=== PATIENT | male | born 1960 | race Caucasian/White ===

== ENCOUNTER → 2020-07-06 | Outpatient (CLI) | payer BC ==
--- NOTE | 2020-07-06 09:17 | US ---
EXAMINATION TYPE: US prostate transrectal DATE OF EXAM: 07/06/2020 COMPARISON: NONE CLINICAL HISTORY: R97.20 ELEVATED PROSTATE ANTIGEN. This examination was performed using the transrectal probe. EXAM MEASUREMENTS: Gland Size: 5.5 x 3.7 x 5.0cm Volume: 52.7 Predicted PSA: 6.3 Actual PSA (if available):4.7 Enlarged, heterogeneous gland without distinct mass. IMPRESSION: No suspicious lesion identified. Predicted PSA = volume x 0.12 ng/ml Calculated Volume = 0.5236 x L x W x H
== END | disposition home or self-care (01) ==
LOC: RADUSWWP 07:29
PROVIDERS: ATTEND Family Medicine
DX: R97.20 Elevated prostate specific antigen [PSA] (principal)
CPT/HCPCS: 76872

== ENCOUNTER 2020-07-13 09:28 | Day surgery (SDC) | payer BC ==
[2020-07-12 08:37] VITALS: BMI 37.8
[~2020-07-13 09:28] MED LIST: LACTATED RINGERS 1,000 ML IV SCH
[2020-07-13] MEDS ORDERED: LIDOCAINE 1% (10MG/ML) FOR IV START INTRADERMA ONE (10:45)
[2020-07-13 10:47] VITALS: RESP 20; TEMP 97.9
[2020-07-13] MEDS ORDERED: PROPOFOL 10 MG/ML 20 ML VIAL IV ONE (11:16)
[2020-07-13] MEDS ORDERED: LIDOCAINE 1% INJ 10MG/ML (20 ML MDV) ONE (11:16)
--- NOTE | 2020-07-13 11:35 | P.PCN ---
Date of Procedure: 07/13/20 Procedure(s) Performed: BRIEF HISTORY: Patient is a 60-year-old pleasant male scheduled for an elective colonoscopy as a part of screening for colon rectal neoplasia. PROCEDURE PERFORMED: Colonoscopy. PREOPERATIVE DIAGNOSIS: Screening for colon cancer. IV sedation per Anesthesia. PROCEDURE: After informed consent was obtained, the patient, was brought into the endoscopy unit. IV sedation was administered by Anesthesia under continuous monitoring. Digital rectal examination was normal. Initially the Olympus CF-160 flexible video colonoscope was then inserted in the rectum, gradually advanced into the cecum without any difficulty. Careful examination was performed as the scope was gradually being withdrawn. Ileocecal valve and the appendiceal orifice were visualized and appeared normal. Prep was fair.. Mucosa of the cecum, ascending colon, transverse colon, descending colon, sigmoid colon, and rectum appeared normal. Retroflexion was performed in the rectum and no lesions were seen. Scattered left sided diverticulosis seen. The patient tolerated the procedure well. IMPRESSION: Normal-appearing colon from rectum to cecum with no evidence of colorectal neoplasia . Scattered left-sided diverticulosis RECOMMENDATIONS: Findings of this examination were discussed with the patient as well as his family. He was advised to have a repeat screen colonoscopy in 10 years.
[2020-07-13 11:40] VITALS: PULSE 68
[2020-07-13 11:55] VITALS: BP 162/92
== END 2020-07-13 12:11 | disposition home or self-care (01) ==
LOC: ORWHC2ENDO 09:28
PROVIDERS: ATTEND Internal Medicine Gastroenterology
DX: Z12.11 Encounter for screening for malignant neoplasm of colon (principal); K57.30 Diverticulosis of large intestine without perforation or abscess without bleeding; G47.33 Obstructive sleep apnea (adult) (pediatric); Z79.899 Other long term (current) drug therapy; Z99.89 Dependence on other enabling machines and devices
CPT/HCPCS: G0121; J2001; J2704; 45378

== ENCOUNTER → 2020-09-27 | Outpatient (CLI) | payer BC ==
--- NOTE | 2020-09-27 19:39 | CONS ---
CONSULTATION DATE OF SERVICE: 09/27/2020 This 60-year-old gentleman has been re-evaluated in Sleep Center for obstructive sleep apnea-hypopnea syndrome. HISTORY OF PRESENT ILLNESS/SLEEP-WAKE EVALUATION: Patient has a history of obstructive sleep apnea for about 7 years. Since that time he has been on treatment with CPAP, and he continues to use CPAP equipment every night for the whole night. His sleep schedule is from 10 p.m. to 5 a.m. on weekdays and from 11 p.m. to 7 a.m. on weekends. No problem with falling asleep. No TV set in bedroom. He usually sleeps on the side position. With the machine he does not snore and does not wake up from sleep. No history of hypnagogic hallucinations, sleep paralysis or cataplexy. The patient may take one nap occasionally after noon. [place] Sleepiness Scale is 8. I checked the patient's CPAP unit. CPAP pressure is 13 cm of water, usage /30 nights for more than 4 hours, average usage 6.2 hours per night. Mask fit 63%, but the patient's hose was broken. The patient is using a Cerrato FX large-sized nasal pillow mask. Apnea-hypopnea index is 4.9, which is normal. PAST MEDICAL HISTORY: Positive for hypertension in the past, prostate carcinoma, restless legs syndrome again in the past. PAST SURGICAL HISTORY: Right and left shoulder surgery. SOCIAL HISTORY: Negative for smoking or using alcohol. 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 MEDICATIONS: None at the present time. REVIEW OF SYSTEMS: No fevers. No double vision. No recent chest pain. No shortness of breath. No abdominal pain. No bleeding episodes. No blood in the urine. No seizure episodes. No snoring with CPAP. No awakenings from sleep. FAMILY HISTORY: Hypertension, arthritis. PHYSICAL EXAMINATION: GENERAL: A pleasant patient in no distress. VITAL SIGNS: BP 125/89, HR 78, RR 18, height 6 feet 2 inches, weight 292.4, temperature 98.4, oxygen saturation at room air 95%. HEENT: PERRLA, EOMI. Evaluation of oropharynx showed tongue protrudes midline. Low position of soft palate. NECK: Supple. No JVD. Thyroid is not palpable. Neck measures 18 inches in circumference. LUNGS: Clear to percussion and to auscultation. Good air exchange. No wheezing or rhonchi. HEART: S1, S2 regular. No murmurs, gallops or rubs. ABDOMEN: Slightly obese. EXTREMITIES: No clubbing or cyanosis. FLAME ANNEALING MACHINE SETTER: Awake, alert, and oriented X3. Cranial nerves 2 to 7 intact. There is no fasciculation or atrophy. noted. No focal deficits observed. IMPRESSION: 1. Obstructive sleep apnea-hypopnea syndrome for about 7 years. The patient demonstrated good compliance with treatment, benefitting from treatment. Normal apnea-hypopnea index reading from CPAP unit. 2. Obesity. BMI 37.4. 3. Prostate carcinoma confirmed by biopsy. Patient is preparing for prostatectomy. 4. History of restless legs syndrome in the past. 5. History of hypertension in the past. 6. Status post right and left shoulder surgery. 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 PLAN: 1. I wrote the patient a prescription for all necessary CPAP supplies, including mask, which is Cerrato FX large nasal pillow mask, tube, filters. 2. Patient should continue to use CPAP equipment every night for the whole night and take it with him to the hospital when he goes there for surgery. 3. Watching and losing weight. 4. Sleep hygiene with regular time in bed for at least 7-1/2 to 8 hours. 5. No driving if feeling sleepiness. Thank you very much for allowing me to participate in the management of your patient. Sincerely, Angel Hyman MD, PhD, FAASM Diplomat of [place] [employer] [place] [employer] Assistant Professor Of Music of [facility] [place] MMODL / IJN: [id number] /
== END | disposition home or self-care (01) ==
CPT/HCPCS: 99211

== ENCOUNTER → 2021-03-01 | Outpatient (CLI) | payer BC | END | disposition home or self-care (01) | LOC: LABWHC1 09:09 | PROVIDERS: ATTEND Urology | DX: C61 Malignant neoplasm of prostate (principal) | CPT/HCPCS: 36415; 84153 ==

== ENCOUNTER → 2021-03-28 | Outpatient (CLI) | payer BC | END | disposition home or self-care (01) | LOC: LABWHC1 10:57 | PROVIDERS: ATTEND Urology | DX: C61 Malignant neoplasm of prostate (principal); R97.21 Rising PSA following treatment for malignant neoplasm of prostate | CPT/HCPCS: 36415; 84153 ==

== ENCOUNTER → 2021-04-04 | Outpatient (CLI) | payer BC ==
--- NOTE | 2021-04-04 22:26 | SFUN ---
SLEEP CENTER FOLLOW UP NOTE DATE OF SERVICE: 04/04/2021 This 61-year-old gentleman has been followed in Sleep Center for treatment of obstructive sleep apnea-hypopnea syndrome. The patient is using his CPAP equipment every night for the whole night. I checked his CPAP unit. Pressure is 13 cm of water. Usage is 26/30 nights for more than 4 hours, average 5.9 hours per night, which is good compliance. Mask fitting 80%. Apnea- hypopnea index is 2.1, which is totally normal. Machine is a Dream Station 1, which has been recalled, and the machine, according to patient, is more than 5 years old. CURRENT MEDICATIONS: Viibryd, PHYSICAL EXAMINATION: GENERAL: Pleasant patient in no distress. VITAL SIGNS: BP 124/92, HR 72, RR 15, height 6 feet 2 inches, weight 295 pounds, body mass index 38.2, temperature 97.5, oxygen saturation at room air 96%. HEENT: PERRLA, EOMI, evaluation of oropharynx showed tongue protrudes midline. Low position of soft palate. NECK: Supple, no JVD. Thyroid is not palpable. LUNGS: Clear to percussion and to auscultation. Good air exchange. No wheezing or rhonchi. HEART: S1, S2 regular. No murmurs, gallops, or rubs. ABDOMEN: Soft and nontender. Bowel sounds are present. No organomegaly appreciated. EXTREMITIES: No clubbing or cyanosis. CORN GRINDER: Awake, alert, and oriented X3. Cranial nerves 2 to 7 intact. There is no fasciculation or atrophy. noted. No focal deficits observed. IMPRESSION: 1. Obstructive sleep apnea-hypopnea syndrome. Patient demonstrated great compliance with treatment, benefitting from treatment. Normal respiration on CPAP. CPAP unit is old. It is a Dream Station 1 from [employer] which has been recalled. 2. Obesity. 3. Prostate carcinoma, on treatment with radiation therapy. 4. History of restless legs syndrome in the past. No complaints at the present time. 5. Hypertension. 6. Status post right and left shoulder surgery. 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 PLAN: 1. Prescription for new CPAP unit to replace his old and recalled CPAP machine. We will do it at automatic regimen 5 to 15. We will continue the same type of mask, which is nasal pillows Cerrato FX, large size. 2. Follow-up visit in 30 to 90 days after patient gets new CPAP unit. 3. Continue to use CPAP equipment every night for the whole night. 4. Losing weight. 5. Sleep hygiene with regular time in bed for 8 hours. 6. No driving if feeling sleepiness. Precautions related to driving. The patient is aware of civil and criminal liability for unsafe driving. 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 Thank you very much for allowing me to participate in the management of your patient. Sincerely, Angel Hyman MD, PhD, FAASM Diplomat of [place] [employer] Sleep Medicine Board of [place] [employer] Steam Crane Operator of [facility] [place] MMODL / IJN: [id number] /
== END ==
LOC: SLEEP 13:49
PROVIDERS: ATTEND Internal Medicine
DX: G47.33 Obstructive sleep apnea (adult) (pediatric) (principal); E66.9 Obesity, unspecified; C61 Malignant neoplasm of prostate; I10 Essential (primary) hypertension; G47.61 Periodic limb movement disorder; Z99.89 Dependence on other enabling machines and devices; Z68.38 Body mass index [BMI] 38.0-38.9, adult; Z98.890 Other specified postprocedural states; Z91.011 Allergy to milk products

== ENCOUNTER → 2021-07-09 | Outpatient (CLI) | payer BC | END | disposition home or self-care (01) | LOC: LABWHC1 15:15 | PROVIDERS: ATTEND Radiology Radiation Oncology | DX: C61 Malignant neoplasm of prostate (principal); C91.10 Chronic lymphocytic leukemia of B-cell type not having achieved remission | CPT/HCPCS: 36415; 84153 ==

== ENCOUNTER → 2021-12-12 | Outpatient (CLI) | payer BC | END | disposition home or self-care (01) | LOC: LABWHC1 10:32 | PROVIDERS: ATTEND Radiology Radiation Oncology | DX: C61 Malignant neoplasm of prostate (principal); C91.10 Chronic lymphocytic leukemia of B-cell type not having achieved remission; Z92.3 Personal history of irradiation | CPT/HCPCS: 36415; 84153 ==

== ENCOUNTER → 2022-04-17 | Outpatient (CLI) | payer BC ==
[2022-04-17 12:18] LABS: INR 0.9 (<1.2); Partial Thromboplastin Time 21.5 sec (22.0-30.0); Prothrombin Time 10.1 sec (9.0-12.0)
== END | disposition home or self-care (01) ==
LOC: LABWHC1 10:53
PROVIDERS: ATTEND Physical Medicine & Rehabilitation Pain Medicine
DX: Z01.812 Encounter for preprocedural laboratory examination (principal)
CPT/HCPCS: 36415; 85610; 85730

== ENCOUNTER → 2022-05-15 | Outpatient (CLI) | payer BC | END | disposition home or self-care (01) | LOC: LABWHC1 10:22 | PROVIDERS: ATTEND Radiology Radiation Oncology | DX: C61 Malignant neoplasm of prostate (principal); C91.10 Chronic lymphocytic leukemia of B-cell type not having achieved remission; Z92.3 Personal history of irradiation | CPT/HCPCS: 36415; 84153 ==

== ENCOUNTER 2022-08-07 12:42 | Inpatient (IN) | payer BC ==
[2022-08-07] MEDS ORDERED: ASPIRIN 81 MG PO STA (13:09)
[2022-08-07] MEDS ORDERED: NITROGLYCERIN OINT 1 INCH/GM PACKET TOPICAL STA (13:09)
--- NOTE | 2022-08-07 13:12 | ED ---
General Adult HPI - General Chief complaint: Chest Pain Stated complaint: chest pain Time Seen by Provider: 08/07/22 12:55 Source: patient, RN notes reviewed, old records reviewed Mode of arrival: ambulatory Limitations: no limitations - History of Present Illness Initial comments: This is a 62-year-old male who presents emergency Department complaining of chest pain for the last 5 days. Patient states been intermittent in nature. Patient states the pain is also associated with shortness of breath. Patient describes the pain as heaviness. Patient states it is worse with exertion. He patient denies any diaphoretic episodes. Patient denies any nausea. Patient denies any radiation of the pain. Patient does have high blood pressure high cholesterol he also has a brother does not a heart attack. Patient denies any swelling to the legs or calf tenderness. - Related Data Home Medications Medication Instructions Recorded Confirmed Albuterol Inhaler [Ventolin Hfa 2 puff INHALATION RT-Q4H PRN 08/07/22 08/07/22 Inhaler] Atorvastatin [Lipitor] 40 mg PO HS 08/07/22 08/07/22 Cyclobenzaprine [Flexeril] 10 mg PO TID PRN 08/07/22 08/07/22 Ergocalciferol (Vitamin D2) 1,250 mcg PO WEEKLY 08/07/22 08/07/22 [Drisdol (50,000 Iu)] Labetalol [Trandate] 100 mg PO BID 08/07/22 08/07/22 Oxybutynin Chloride [Oxybutynin 10 mg PO DAILY 08/07/22 08/07/22 Chloride ER] Vilazodone HCl [Viibryd] 40 mg PO DAILY 08/07/22 08/07/22 rOPINIRole HCL [Requip] 4 mg PO HS 08/07/22 08/07/22 Allergies Allergy/AdvReac Type Severity Reaction Status Date / Time dairy products AdvReac LACTOSE Uncoded 08/07/22 14:07 INTOLERANT/Diarrhea/BLOATING Review of Systems ROS Statement: Those systems with pertinent positive or pertinent negative responses have been documented in the HPI. ROS Other: All systems not noted in ROS Statement are negative. Past Medical History Past Medical History: Osteoarthritis (OA), Sleep Apnea/CPAP/BIPAP Additional Past Medical History / Comment(s): SLEEP APNEA- USING C-PAP SET AT [age] History of Any Multi-Drug Resistant Organisms: None Reported Past Surgical History: Orthopedic Surgery Additional Past Surgical History / Comment(s): ROTATOR CUFF REPAIR TARUN. SHOULDERS. LT SHOULDER SURGERY 1976. COLONOSCOPY 2010 Past Anesthesia/Blood Transfusion Reactions: No Reported Reaction Past Psychological History: Depression Smoking Status: Never smoker Past Alcohol Use History: Occasional Past Drug Use History: None Reported - Past Family History Mother Family Medical History: No Reported History General Exam - General Exam Comments Initial Comments: GENERAL: Patient is well-developed and well-nourished. Patient is nontoxic and well- hydrated and is in mild distress. ENT: Neck is soft and supple. No significant lymphadenopathy is noted. Oropharynx is clear. Moist mucous membranes. Neck has full range of motion without eliciting any pain. 6640 EYES: The sclera were anicteric and conjunctiva were pink and moist. Extraocular movements were intact and pupils were equal round and reactive to light. Eyelids were unremarkable. PULMONARY: Unlabored respirations. Good breath sounds bilaterally. No audible rales rhonchi or wheezing was noted. CARDIOVASCULAR: There is a regular rate and rhythm without any murmurs gallops or rubs. ABDOMEN: Soft and nontender with normal bowel sounds. SKIN: Skin is clear with no lesions or rashes and otherwise unremarkable. NEUROLOGIC: Patient is alert and oriented x3. Cranial nerves II through XII are grossly intact. Motor and sensory are also intact. Normal speech, volume and content. Symmetrical smile. MUSCULOSKELETAL: Normal extremities with adequate strength and full range of motion. No lower extremity swelling or edema. No calf tenderness. LYMPHATICS: No significant lymphadenopathy is noted PSYCHIATRIC: Normal psychiatric evaluation. 6640 Limitations: no limitations Course Vital Signs 08/07/22 08/07/22 08/07/22 12:48 13:30 14:00 Temperature 98.2 F Pulse Rate 87 86 Respiratory 20 18 18 Rate Blood Pressure 149/85 155/105 152/104 O2 Sat by Pulse 99 96 94 L Oximetry 08/07/22 08/07/22 08/07/22 14:30 15:00 15:30 Temperature Pulse Rate 90 89 95 Respiratory 18 8 L 8 L Rate Blood Pressure 157/112 135/104 136/102 O2 Sat by Pulse 96 97 95 Oximetry Medical Decision Making - Medical Decision Making EKG was interpreted by myself shows a sinus rhythm at 85 bpm AK interval 151 QRSs 100 one QT interval 355 QTC is 390. Patient's EKG shows no ST segment elevation or depression. Was pt. sent in by a medical professional or institution (MAYDA Herrera, [employer], urgent care, hospital, or correction...) When possible be specific @ -Patient's primary practitioner sent him to the emergency department Did you speak to anyone other than the patient for history (EMS, parent, family, police, friend...)? What history was obtained from this source @ -No Did you review nursing and triage notes (agree or disagree)? Why? @ -I reviewed and agree with nursing and triage notes Were old charts reviewed (outside hosp., previous admission, EMS record, old EKG, old radiological studies, urgent care reports/EKG's, correction records)? Report findings @ -I reviewed prior lab work and compared to today's labs Differential Diagnosis (chest pain, altered mental status, abdominal pain women, abdominal pain men, vaginal bleeding, weakness, fever, dyspnea, syncope, headache, dizziness, GI bleed, back pain, seizure, CVA, palpatations, mental health, musculoskeletal)? @ -Differential Chest Pain: Stable Angina, Unstable Angina, STEMI, NSTEMI Aortic Dissection, Pneumothorax, Musculoskeletal, Esophageal Spasm GERD, Cholecystitis, Pancreatitis, Zoster, this is not meant to be an all-inclusive list. EKG interpreted by me (3pts min.). @ -As above X-rays interpreted by me (1pt min.). @ -X-ray of the chest was interpreted by myself shows no acute abnormality. CT interpreted by me (1pt min.). @ -CT of the chest was interpreted by myself and showed no obvious pulmonary embolism or any other acute abnormality U/S interpreted by me (1pt. min.). @ -None done What testing was considered but not performed or refused? (CT, X-rays, U/S, labs)? Why? @ -None What meds were considered but not given or refused? Why? @ -None Did you discuss the management of the patient with other professionals (professionals i.e. MAYDA Herrera, [employer], lab, RT, psych nurse, social media assistant, shipyard painter, teacher, major gifts officer, case aide)? Give summary @ -I spoke with some physicians about the case and he agreed to admit the patient I wrote admitting orders Was smoking cessation discussed for >3mins.? @ -No Was critical care preformed (if so, how long)? @ -35 minutes Were there social determinants of health that impacted care today? How? (Homelessness, low income, unemployed, alcoholism, drug addiction, transportation, low edu. Level, literacy, decrease access to med. care, mcc, rehab)? @ -No Was there de-escalation of care discussed even if they declined (Discuss DNR or withdrawal of care, Hospice)? DNR status @ -No What co-morbidities impacted this encounter? (DM, HTN, Smoking, COPD, CAD, Cancer, CVA, ARF, Chemo, Hep., AIDS, mental health diagnosis, sleep apnea, morbid obesity)? @ -Hypertension, high cholesterol, family history of heart disease Was patient admitted / discharged? Hospital course, mention meds given and route, prescriptions, significant lab abnormalities, going to OR and other pertinent info. @ -hospital course Undiagnosed new problem with uncertain prognosis? @ -No Drug Therapy requiring intensive monitoring for toxicity (Heparin, Nitro, Insulin, Cardizem)? @ -Patient was placed on heparin Were any procedures done? @ -No Diagnosis/symptom? @ -NSTEMI Acute, or Chronic, or Acute on Chronic? @ -Acute Uncomplicated (without systemic symptoms) or Complicated (systemic symptoms)? @ -Complicated Side effects of treatment? @ -No Exacerbation, Progression, or Severe Exacerbation? @ -No Poses a threat to life or bodily function? How? (Chest pain, [place], [place], pneumonia, PE, COPD, DKA, ARF, appy, cholecystitis, CVA, Diverticulitis, Homicidal, Suicidal, threat to staff... and all critical care pts) @ -Yes this could lead to poor cardiac output which could lead to poor organ perfusion - Lab Data Result diagrams: 08/07/22 13:22 08/07/22 13:22 Lab Results 08/07/22 08/07/22 08/07/22 Range/Units 13:22 13:22 13:22 WBC 6.5 (3.8-10.6) k/uL RBC 4.72 (4.30-5.90) m/uL Hgb 15.2 (13.0-17.5) gm/dL Hct 44.2 (39.0-53.0) % MCV 93.7 (80.0-100.0) fL MCH 32.2 (25.0-35.0) pg MCHC 34.3 (31.0-37.0) g/dL RDW 13.2 (11.5-15.5) % Plt Count 273 (150-450) k/uL MPV 7.7 Neutrophils % 61 % Lymphocytes % 27 % Monocytes % 7 % Eosinophils % 2 % Basophils % 1 % Neutrophils # 3.9 (1.3-7.7) k/uL Lymphocytes # 1.8 (1.0-4.8) k/uL Monocytes # 0.5 (0-1.0) k/uL Eosinophils # 0.2 (0-0.7) k/uL Basophils # 0.1 (0-0.2) k/uL PT 9.6 (9.0-12.0) sec INR 0.9 (<1.2) APTT 21.4 L (22.0-30.0) sec D-Dimer 0.99 H (<0.60) mg/L FEU Sodium 140 (137-145) mmol/L Potassium 4.2 (3.5-5.1) mmol/L Chloride 106 (98-107) mmol/L Carbon Dioxide 26 (22-30) mmol/L Anion Gap 8 mmol/L BUN 21 H (9-20) mg/dL Creatinine 0.99 (0.66-1.25) mg/dL Est GFR (CKD-EPI)AfAm >90 (>60 ml/min/1.73 sqM) Est GFR (CKD-EPI)NonAf 81 (>60 ml/min/1.73 sqM) Glucose 89 (74-99) mg/dL Calcium 8.9 (8.4-10.2) mg/dL Magnesium 2.0 (1.6-2.3) mg/dL Total Bilirubin 0.5 (0.2-1.3) mg/dL AST 30 (17-59) U/L ALT 44 (4-49) U/L Alkaline Phosphatase 75 (38-126) U/L Troponin I (0.000-0.034) ng/mL NT-Pro-B Natriuret Pep pg/mL Total Protein 6.6 (6.3-8.2) g/dL Albumin 4.0 (3.5-5.0) g/dL 03/02/23 03/02/23 Range/Units 13:22 13:22 WBC (3.8-10.6) k/uL RBC (4.30-5.90) m/uL Hgb (13.0-17.5) gm/dL Hct (39.0-53.0) % MCV (80.0-100.0) fL MCH (25.0-35.0) pg MCHC (31.0-37.0) g/dL RDW (11.5-15.5) % Plt Count (150-450) k/uL MPV Neutrophils % % Lymphocytes % % Monocytes % % Eosinophils % % Basophils % % Neutrophils # (1.3-7.7) k/uL Lymphocytes # (1.0-4.8) k/uL Monocytes # (0-1.0) k/uL Eosinophils # (0-0.7) k/uL Basophils # (0-0.2) k/uL PT (9.0-12.0) sec INR (<1.2) APTT (22.0-30.0) sec D-Dimer (<0.60) mg/L FEU Sodium (137-145) mmol/L Potassium (3.5-5.1) mmol/L Chloride (98-107) mmol/L Carbon Dioxide (22-30) mmol/L Anion Gap mmol/L BUN (9-20) mg/dL Creatinine (0.66-1.25) mg/dL Est GFR (CKD-EPI)AfAm (>60 ml/min/1.73 sqM) Est GFR (CKD-EPI)NonAf (>60 ml/min/1.73 sqM) Glucose (74-99) mg/dL Calcium (8.4-10.2) mg/dL Magnesium (1.6-2.3) mg/dL Total Bilirubin (0.2-1.3) mg/dL AST (17-59) U/L ALT (4-49) U/L Alkaline Phosphatase (38-126) U/L Troponin I 0.152 H* (0.000-0.034) ng/mL NT-Pro-B Natriuret Pep 498 pg/mL Total Protein (6.3-8.2) g/dL Albumin (3.5-5.0) g/dL Critical Care Time Critical Care Time: Yes Total Critical Care Time: 35 Disposition Clinical Impression: Acute non-ST elevation myocardial infarction (NSTEMI) Disposition: ADMITTED IP TO THIS HOSP Referrals: Diana Alvarez, PAC [REFERRING] - 1-2 days Time of Disposition: 16:20
--- NOTE | 2022-08-07 13:41 | XR ---
EXAMINATION TYPE: XR chest 2V DATE OF EXAM: 08/07/2022 COMPARISON: NONE HISTORY: Chest pain. TECHNIQUE: Frontal and lateral views of the chest are obtained. FINDINGS: There is no focal air space opacity, pleural effusion, or pneumothorax seen. The cardiac silhouette size is within normal limits. The osseous structures are intact. Overlying EKG leads are seen. IMPRESSION: No acute process.
[2022-08-07 13:53] LABS: Basophils # (A) 0.1 k/uL (0-0.2); Basophils % (A) 1 %; Eosinophils # (A) 0.2 k/uL (0-0.7); Eosinophils % (A) 2 %; HCT 44.2 % (39.0-53.0); HGB 15.2 gm/dL (13.0-17.5); Lymphocytes # (A) 1.8 k/uL (1.0-4.8); Lymphocytes % (A) 27 %; MCH 32.2 pg (25.0-35.0); MCHC 34.3 g/dL (31.0-37.0); MCV 93.7 fL (80.0-100.0); Mean Platelet Volume 7.7; Monocytes # (A) 0.5 k/uL (0-1.0); Monocytes % (A) 7 %; Neutrophils # (A) 3.9 k/uL (1.3-7.7); Neutrophils % (A) 61 %; Platelet Count 273 k/uL (150-450); RBC 4.72 m/uL (4.30-5.90); RDW 13.2 % (11.5-15.5); WBC 6.5 k/uL (3.8-10.6)
[2022-08-07 14:07] LABS: ALT 44 U/L (4-49); AST 30 U/L (17-59); African American GFR (CKD) >90 (>60 ml/min/1.73 sqM); Alkaline Phosphatase 75 U/L (38-126); Anion Gap 8 mmol/L; Blood Urea Nitrogen 21 mg/dL (9-20); Calcium 8.9 mg/dL (8.4-10.2); Carbon Dioxide 26 mmol/L (22-30); Chloride 106 mmol/L (98-107); Glucose 89 mg/dL (74-99); Non-African American GFR(CKD) 81 (>60 ml/min/1.73 sqM); Potassium 4.2 mmol/L (3.5-5.1); Sodium 140 mmol/L (137-145); Total Bilirubin 0.5 mg/dL (0.2-1.3); Total Protein 6.6 g/dL (6.3-8.2)
[2022-08-07] MEDS ORDERED: HEPARIN SODIUM 1,000 UN/ML (10ML VL) IV ONE (14:54)
[2022-08-07 15:04] LABS: INR 0.9 (<1.2); Prothrombin Time 9.6 sec (9.0-12.0)
[2022-08-07 15:12] LABS: Partial Thromboplastin Time 21.4 sec (22.0-30.0)
--- NOTE | 2022-08-07 15:38 | CT ---
EXAMINATION TYPE: CT chest angio for PE DATE OF EXAM: 08/07/2022 COMPARISON: Chest x-ray earlier today HISTORY: Elevated d-dimer, shortness of breath and chest pain CT DLP: 998.9 mGycm. Automated Exposure Control for Dose Reduction was Utilized. CONTRAST: CTA scan of the thorax is performed with IV Contrast, patient injected with 100 mL of Isovue 370, pul monary embolism protocol. MIP Images are created on CT scanner and reviewed. FINDINGS: LUNGS: Suboptimal study as patient unable to hold breath. This limits evaluation for subcentimeter no dules. No suspicious focal consolidation. No pleural effusion or pneumothorax seen bilaterally MEDIASTINUM: There is a suboptimal study due to motion but no convincing CT evidence for acute centra l pulmonary embolism. There are no greater than 1 cm hilar or mediastinal lymph nodes. Mild cardiome joo. No pericardial effusion is seen. OTHER: Slight scoliotic curvature with multilevel spurring in the spine. IMPRESSION: Suboptimal study without acute pulmonary embolism. Mild cardiomegaly without suspicious a cute pulmonary process seen.
[2022-08-07] MEDS: HEPARIN SOD,PORK IN 0.45% NACL 25,000 UNIT in 0.45% NACL 1 250ML.BAG IV SCH (15:40)
[2022-08-07] MEDS ORDERED: NITROGLYCERIN SL TABS 0.4 MG TAB SUBLINGUAL PRN (16:50)
[2022-08-07] MEDS ORDERED: CYCLOBENZAPRINE 10 MG TAB PO PRN (18:07)
--- NOTE | 2022-08-07 18:12 | P.HPIM ---
History of Present Illness H&P Date: 08/07/22 Patient is a 61-year-old male with PMH of MARYAN on CPAP, restless leg syndrome, hypertension, urinary urgency, dyslipidemia that presents the ED for chest pain. Patient reports chest pain that has been ongoing for the past week. His pain is intermittent but increasing in frequency which prompted him to come to the ED. He describes chest pain as pressure-like in nature, substernal with no radiation. Pain can occur at rest or with exertion. His chest pain is associated with palpitations. Patient denies any headache, lower extremity edema, nausea or vomiting, fever chills, cough, shortness of breath, changes in urination or bowel habits. No changes in appetite or weight. He denies any diz ziness, numbness/weakness/tingling of the extremities. In the ED, BP was elevated at 155/105. He was tachycardic with heart rate 90. CBC was unremarkable. Coagulation panel showed a PTT of 21.4. D-dimer was 0.99. CMP showed BUN of 21. Troponin was 0.152, 0.172 with EKG showing sinus rhythm with no ST elevation. BNP was 498. Chest x-ray was negative. CTA chest showed mild cardiomegaly without acute process. Patient is admitted for chest pain, rule out acute coronary syndrome with cardiology consultation. Pertinent positives and negatives as discussed in HPI, a complete review of sys tems was performed and all other systems are negative. General: non toxic, no distress, appears at stated age Derm: warm, dry Head: atraumatic, normocephalic, symmetric Eyes: EOMI, no lid lag, anicteric sclera Mouth: no lip lesion, mucus membranes moist Cardiovascular: S1S2 reg, no murmur Lungs: CTA bilateral, no rhonchi, no rales , no accessory muscle use Ext: no gross muscle atrophy, no edema, no contractures Neuro: no focal neuro deficits Psych: Alert, oriented, appropriate affect #Chest pain #Elevated troponin #Elevated d-dimer Chronic conditions: MARYAN on CPAP, restless leg syndrome, hypertension, urinary urgency, dyslipidemia Based on my assessment of this patient, this patient meets a high complexity level of care. Patient has an acute diagnosis of chest pain with elevated troponins that poses a threat to life or bodily function. I have reviewed the following network relations consultant notes: None. I have reviewed the results of the following tests: CBC was unremarkable. Coagulation panel showed a PTT of 21.4 D-dimer was 0.99 CMP showed BUN of 21 Troponin was 0.152, 0.172 CTA chest showed mild cardiomegaly without acute process Chest x-ray was negative I have ordered the following tests: Repeat troponin Echocardiogram I have discussed the care of this patient with the following independent historian: None. I have independently interpreted the following test below: EKG showing sinus rhythm with no ST elevation. I have discussed the management of this patient with the following physician: The case was discussed with ED physician, agreeable to admit the patient for chest pain and elevated troponin with cardiology consultation to rule out ACS. This patient has a high risk of morbidity due to the following reasons: Patient be started on a heparin drip at 6.47 units per kilogram per hour and APTT will need to be closely monitored. He has received aspirin 324 mg by mouth in the ED. Telemetry monitoring will be ordered. Echocardiogram as ordered. Lipitor 40 mg by mouth at bedtime will be restarted for history of dyslipidemia. Labetalol 100 g by mouth twice a day will be restarted for her history of hypertension. Ropinirole 4 mg by mouth at bedtime restarted for restless leg syndrome. Oxybutynin 10 mg by mouth daily will be restarted for urinary urgency. Patient names his decision-maker if he can't make decisions for himself. Patient would like to be full code. Past Medical History Past Medical History: Osteoarthritis (OA), Sleep Apnea/CPAP/BIPAP Additional Past Medical History / Comment(s): SLEEP APNEA- USING C-PAP SET AT [age] History of Any Multi-Drug Resistant Organisms: None Reported Past Surgical History: Orthopedic Surgery Additional Past Surgical History / Comment(s): ROTATOR CUFF REPAIR TARUN. SHOULDERS. LT SHOULDER SURGERY 1976. COLONOSCOPY 2009 Past Anesthesia/Blood Transfusion Reactions: No Reported Reaction Past Psychological History: Depression Smoking Status: Never smoker Past Alcohol Use History: Occasional Past Drug Use History: None Reported - Past Family History Mother Family Medical History: No Reported History Medications and Allergies Home Medications Medication Instructions Recorded Confirmed Type Albuterol Inhaler [Ventolin Hfa 2 puff INHALATION RT-Q4H PRN 08/07/22 08/07/22 History Inhaler] Atorvastatin [Lipitor] 40 mg PO HS 08/07/22 08/07/22 History Cyclobenzaprine [Flexeril] 10 mg PO TID PRN 08/07/22 08/07/22 History Ergocalciferol (Vitamin D2) 1,250 mcg PO WEEKLY 08/07/22 08/07/22 History [Drisdol (50,000 Iu)] Labetalol [Trandate] 100 mg PO BID 08/07/22 08/07/22 History Oxybutynin Chloride [Oxybutynin 10 mg PO DAILY 08/07/22 08/07/22 History Chloride ER] Vilazodone HCl [Viibryd] 40 mg PO DAILY 08/07/22 08/07/22 History rOPINIRole HCL [Requip] 4 mg PO HS 08/07/22 08/07/22 History Allergies Allergy/AdvReac Type Severity Reaction Status Date / Time dairy products AdvReac LACTOSE Uncoded 08/07/22 14:07 INTOLERANT/Diarrhea/BLOATING Physical Exam Vitals: Vital Signs Temp Pulse Resp BP Pulse Ox 08/07/22 15:30 95 8 L 136/102 95 08/07/22 15:00 89 8 L 135/104 97 08/07/22 14:30 90 18 157/112 96 08/07/22 14:00 86 18 152/104 94 L 08/07/22 13:30 18 155/105 96 08/07/22 12:48 98.2 F 87 20 149/85 99 Intake and Output 08/07/22 08/07/22 08/07/22 06:59 14:59 22:59 Other: Weight 147.418 kg Results CBC & Chem 7: 08/07/22 13:22 08/07/22 13:22 Labs: Abnormal Lab Results - Last 24 Hours (Table) 08/07/22 08/07/22 08/07/22 Range/Units 13:22 13:22 13:22 APTT 21.4 L (22.0-30.0) sec D-Dimer 0.99 H (<0.60) mg/L FEU BUN 21 H (9-20) mg/dL Troponin I 0.152 H* (0.000-0.034) ng/mL 08/07/22 Range/Units 17:01 APTT (22.0-30.0) sec D-Dimer (<0.60) mg/L FEU BUN (9-20) mg/dL Troponin I 0.172 H* (0.000-0.034) ng/mL
[2022-08-07] MEDS: NITROGLYCERIN OINT 1 INCH/GM PACKET TOPICAL SCH ×2 (18:39→23:31)
[2022-08-07] MEDS: ATORVASTATIN 40 MG TAB PO SCH (20:33)
[2022-08-07] MEDS: LABETALOL 100 MG TAB PO SCH (20:33)
[2022-08-07] MEDS: OXYBUTYNIN 10 MG TAB.ER.24 PO SCH ×3 (20:51→21:07)
[2022-08-07] MEDS: rOPINIRole HCL 4 MG TABLET PO SCH (20:51)
[2022-08-07] MEDS ORDERED: HEPARIN SODIUM 1,000 UN/ML (10ML VL) MISCELLANE ONE (23:01)
[2022-08-08] MEDS: NITROGLYCERIN OINT 1 INCH/GM PACKET TOPICAL SCH ×4 (06:31→23:24)
[2022-08-08] MEDS ORDERED: HEPARIN SODIUM,PORCINE 10,000 UNIT in SODIUM CHLORIDE 0.9% 1,000 ML IRRIGATION PRN (07:00)
[2022-08-08] MEDS ORDERED: HEPARIN SODIUM,PORCINE 2,500 UNIT in SODIUM CHLORIDE 0.9% 250 ML IRRIGATION PRN (07:00)
[2022-08-08] MEDS ORDERED: ALPRAZolam 0.5 MG TAB PO PRN (08:49)
[2022-08-08] MEDS ORDERED: ASPIRIN 325 MG TAB PO STA (08:49)
[2022-08-08] MEDS ORDERED: ATORVASTATIN 80 MG TAB PO STA (08:49)
[2022-08-08] MEDS ORDERED: NITROGLYCERIN SL TABS 0.4 MG TAB SUBLINGUAL PRN (08:49)
[2022-08-08] MEDS ORDERED: ALPRAZolam 0.25 MG TAB PO PRN (08:49)
[2022-08-08] MEDS ORDERED: ASPIRIN 325 MG TAB PO SCH (09:00)
[2022-08-08] MEDS ORDERED: ASPIRIN 81 MG PO SCH (09:00)
[2022-08-08] MEDS ORDERED: Vilazodone Hcl [Viibryd] 40 MG Tablet PO SCH (09:00)
[2022-08-08] MEDS: HEPARIN SOD,PORK IN 0.45% NACL 25,000 UNIT in 0.45% NACL 1 250ML.BAG IV SCH (09:12)
[2022-08-08] MEDS: LABETALOL 100 MG TAB PO SCH ×2 (09:12→20:12)
[2022-08-08] MEDS: ACETAMINOPHEN TAB 325 MG TAB PO PRN (09:24)
[2022-08-08 12:13] LABS: Chol/HDL Ratio 4.02 Ratio; LDL Cholesterol,Calculated 67.8 mg/dL (0.0-131.0)
--- NOTE | 2022-08-08 12:26 | P.CRDCN ---
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 He does have a past medical history of hypertens ion, hyperlipidemia, obstructive sleep apnea, morbid obesity. Patient denies history of diabetes. He does state he has a stress test done last year around March at [facility]. We have been asked to evaluate the patient for non-ST elevated myocardial infarction. Patient complains of pressure in his chest that started in the mid chest area with no radiation. Started while he was sitting but he also developed sweats. It lasted for about 15-20 minutes and went away. He also had an episode 1 week ago where he was sitting didn't feel right and his heart was beating fast and he felt disoriented. Initially blood pressure was quite high up to 157/112. Patient is seen today in the emergency center waiting for a bed on the cardiac stepdown unit. EKG nonspecific ST changes with T-wave inversion Troponins 0.152, 0.172, 0.125. CBC unremarkable. D-dimer 0.99. Electrolytes normal, creatinine 0.99. Triglycerides 172, cholesterol 136, LDL 67, HDL 33. Chest x-ray no acute process CT of the chest suboptimal study. No acute pulmonary embolism. Mild cardiomegaly without suspicious acute pulmonary process. Home cardiac medications: Atorvastatin 40 mg at bedtime, labetalol 100 mg twice daily Review Of Systems: At the time of my evaluation: Constitutional: No fever, no chills. No weakness, fatigue or lethargy. EENT: No headache. No dizziness. Lungs: No shortness of breath, cough, no sputum production. No wheezing. Cardiovascular: No chest pain, no lower extremity edema. No palpitations. No paroxysmal nocturnal dyspnea. No orthopnea. No lightheadedness or dizziness. No syncopal episodes. Abdominal: No abdominal pain. No nausea, vomiting. No diarrhea. No co nstipation. No bloody or tarry stools. Genitourinary: No dysuria.. No urinary retention. Musculoskeletal: No myalgias. No muscle weakness, no frequent falls. No back pain. No neck pain. Integumentary: No wounds. No rash. No unusual bruising. Neurologic: No aphasia. No facial droop. No change in mentation. No head injury. No headache. Physical examination: Gen: This is a morbidly obese 62-year-old male. He is resting on the ear structure and appears to be comfortable and in no acute distress. VS: reviewed blood pressure 136/86, heart rate 90, pulse ox 94% on room air. HEENT: Head is atraumatic, normocephalic. Pupils equal, round. Sclerae is anicteric. NECK: Supple. No JVD. No lymphadenopathy. No thyromegaly. LUNGS: Clear to auscultation. No wheezes or rhonchi. No intercostal retractions. HEART: Regular rate and rhythm. No murmur. ABDOMEN: Soft. Bowel sounds are present. No masses. No tenderness. EXTREMITIES: No pedal edema. No calf tenderness. NEUROLOGICAL: Patient is awake, alert and oriented x3. Cranial nerves 2 through 12 are grossly intact. Assessment: Non-ST elevated myocardial infarction Hypertension Hyperlipidemia Obstructive sleep apnea Morbid obesity Plan: Patient scheduled for cardiac catheterization today with Dr. Fried Obtain 2-D echocardiogram and Doppler study to assess cardiac structure and function Resume patient's home cardiac medications Patient also started on aspirin 1 mg daily. Further recommendations to follow based upon clinical course Thank you kindly for this consultation. Nurse practitioner note has been reviewed, I agree with documented findings and plan of care. Patient was seen and examined. Past Medical History Past Medical History: Osteoarthritis (OA), Sleep Apnea/CPAP/BIPAP Additional Past Medical History / Comment(s): SLEEP APNEA- USING C-PAP SET AT [age] History of Any Multi-Drug Resistant Organisms: None Reported Past Surgical History: Orthopedic Surgery Additional Past Surgical History / Comment(s): ROTATOR CUFF REPAIR TARUN. SHOULDERS. LT SHOULDER SURGERY 1976. COLONOSCOPY 2009 Past Anesthesia/Blood Transfusion Reactions: No Reported Reaction Past Psychological History: Depression Smoking Status: Never smoker Past Alcohol Use History: Occasional Past Drug Use History: None Reported - Past Family History Mother Family Medical History: No Reported History Medications and Allergies Home Medications Medication Instructions Recorded Confirmed Type Albuterol Inhaler [Ventolin Hfa 2 puff INHALATION RT-Q4H PRN 08/07/22 08/07/22 History Inhaler] Atorvastatin [Lipitor] 40 mg PO HS 08/07/22 08/07/22 History Cyclobenzaprine [Flexeril] 10 mg PO TID PRN 08/07/22 08/07/22 History Ergocalciferol (Vitamin D2) 1,250 mcg PO WEEKLY 08/07/22 08/07/22 History [Drisdol (50,000 Iu)] Labetalol [Trandate] 100 mg PO BID 08/07/22 08/07/22 History Oxybutynin Chloride [Oxybutynin 10 mg PO DAILY 08/07/22 08/07/22 History Chloride ER] Vilazodone HCl [Viibryd] 40 mg PO DAILY 08/07/22 08/07/22 History rOPINIRole HCL [Requip] 4 mg PO HS 08/07/22 08/07/22 History Allergies Allergy/AdvReac Type Severity Reaction Status Date / Time dairy products AdvReac LACTOSE Uncoded 08/07/22 14:07 INTOLERANT/Diarrhea/BLOATING Physical Exam Vitals: Vital Signs Temp Pulse Resp BP Pulse Ox 08/08/22 05:00 70 15 136/86 90 L 08/08/22 04:30 70 129/87 98 08/08/22 04:00 11 L 123/86 95 08/08/22 03:30 71 18 127/85 94 L 08/08/22 03:00 73 16 138/84 92 L 08/08/22 02:30 71 14 108/70 93 L 08/08/22 02:00 74 14 122/87 93 L 08/08/22 01:30 72 14 132/78 92 L 08/08/22 01:00 80 16 126/88 94 L 08/08/22 00:30 73 14 123/88 94 L 08/08/22 00:00 76 16 125/75 93 L 08/07/22 23:58 73 17 125/75 93 L 08/07/22 23:30 74 17 122/73 93 L 08/07/22 23:00 75 18 128/84 90 L 08/07/22 22:30 80 14 132/91 91 L 08/07/22 22:00 81 14 127/93 95 08/07/22 21:30 87 20 132/95 93 L 08/07/22 21:00 77 18 130/105 99 08/07/22 20:30 133/92 08/07/22 20:00 81 22 128/82 95 08/07/22 19:30 22 136/84 94 L 08/07/22 19:00 87 16 123/95 94 L 08/07/22 18:30 90 20 146/93 94 L 08/07/22 18:00 96 18 146/93 96 08/07/22 15:30 95 18 136/102 95 08/07/22 15:00 96 18 135/104 97 08/07/22 14:30 90 18 157/112 96 08/07/22 14:00 86 18 152/104 94 L 08/07/22 13:30 18 155/105 96 08/07/22 12:48 98.2 F 87 20 149/85 99 Intake and Output 08/07/22 08/07/22 08/08/22 14:59 22:59 06:59 Intake Total 74.463 Balance 74.463 Intake: Intake, IV Titration 74.463 Amount Heparin Sod,Pork in 0.45% 74.463 NaCl 25,000 unit In 0.45 % NaCl 1 250ml.bag @ 6.78 UNITS/KG/HR 9.995 mls/hr IV .Q24H [facility] Rx#: [id number] Other: Weight 147.418 kg Results 08/07/22 13:22 08/07/22 13:22 Cardiac Enzymes 08/07/22 08/07/22 08/07/22 Range/Units 13:22 13:22 17:01 AST 30 (17-59) U/L Troponin I 0.152 H* 0.172 H* (0.000-0.034) ng/mL 08/07/22 Range/Units 20:27 AST (17-59) U/L Troponin I 0.125 H* (0.000-0.034) ng/mL Coagulation 08/07/22 08/07/22 08/08/22 Range/Units 13:22 21:34 05:27 PT 9.6 (9.0-12.0) sec APTT 21.4 L 24.5 31.8 H (22.0-30.0) sec CBC 08/07/22 Range/Units 13:22 WBC 6.5 (3.8-10.6) k/uL RBC 4.72 (4.30-5.90) m/uL Hgb 15.2 (13.0-17.5) gm/dL Hct 44.2 (39.0-53.0) % Plt Count 273 (150-450) k/uL Comprehensive Metabolic Panel 08/07/22 Range/Units 13:22 Sodium 140 (137-145) mmol/L Potassium 4.2 (3.5-5.1) mmol/L Chloride 106 (98-107) mmol/L Carbon Dioxide 26 (22-30) mmol/L BUN 21 H (9-20) mg/dL Creatinine 0.99 (0.66-1.25) mg/dL Glucose 89 (74-99) mg/dL Calcium 8.9 (8.4-10.2) mg/dL AST 30 (17-59) U/L ALT 44 (4-49) U/L Alkaline Phosphatase 75 (38-126) U/L Total Protein 6.6 (6.3-8.2) g/dL Albumin 4.0 (3.5-5.0) g/dL Current Medications Generic Name Dose Route Start Last Admin Trade Name Freq PRN Reason Stop Dose Admin Aspirin 325 mg 08/08/22 09:00 Aspirin 325 Mg Tab PO DAILY [facility] Atorvastatin Calcium 40 mg 08/07/22 21:00 08/07/22 20:33 Atorvastatin 40 Mg Tab PO 40 mg HS [facility] Administration Cyclobenzaprine HCl 10 mg 08/07/22 18:07 Cyclobenzaprine 10 Mg Tab PO TID PRN Pain Heparin Sodium/Sodium Chloride 250 mls @ 9.995 mls/hr 08/07/22 15:00 08/07/22 23:07 25,000 unit/ Sodium Chloride IV 9.78 units/kg/hr .Q24H [facility] 14.417 mls/hr Titration Protocol 6.78 UNITS/KG/HR Labetalol HCl 100 mg 08/07/22 21:00 08/07/22 20:33 Labetalol 100 Mg Tab PO 100 mg BID [facility] Administration Nitroglycerin 0.4 mg 08/07/22 16:50 Nitroglycerin Sl Tabs 0.4 Mg Tab SUBLINGUAL Q5M PRN Chest Pain Nitroglycerin 1 inch 08/07/22 18:00 08/08/22 06:31 Nitroglycerin Oint 1 Inch/Gm Packet TOPICAL 1 inch Q6HR [facility] Administration Vilazodone Hcl [ 40 mg 03/03/23 09:00 Viibryd] 40 Mg PO Tablet DAILY [facility] Oxybutynin Chloride 10 mg 08/07/22 21:00 08/07/22 21:07 Oxybutynin 10 Mg Tab.Er.24 PO 10 mg HS [facility] Administration Ropinirole HCl 4 mg 08/07/22 21:00 08/07/22 20:51 Ropinirole Hcl 4 Mg Tablet PO 4 mg HS [facility] Administration Intake and Output 08/07/22 08/07/22 08/08/22 14:59 22:59 06:59 Intake Total 74.463 Balance 74.463 Intake: Intake, IV Titration 74.463 Amount Heparin Sod,Pork in 0.45% 74.463 NaCl 25,000 unit In 0.45 % NaCl 1 250ml.bag @ 6.78 UNITS/KG/HR 9.995 mls/hr IV .Q24H [facility] Rx#: [id number] Other: Weight 147.418 kg Patient Weight 08/08/22 06:59 Weight 147.418 kg 08/07/22 13:22 08/07/22 13:22
[2022-08-08] MEDS ORDERED: VERAPAMIL 2.5 MG/ML 2 ML AMP ONE (13:35)
[2022-08-08] MEDS ORDERED: HEPARIN SODIUM 1,000 UN/ML (10ML VL) ONE (14:01)
[2022-08-08] MEDS ORDERED: LIDOCAINE 1% INJ 10MG/ML (5 ML VIAL-PF) SQ ONE (14:03)
[2022-08-08] MEDS ORDERED: MIDAZOLAM 2 MG/2 ML VIAL IV ONE (14:03)
[2022-08-08] MEDS ORDERED: VERAPAMIL SYRINGE (5 MG/10 ML) INTRAARTER ONE (14:05)
[2022-08-08] MEDS ORDERED: IV FLUID CONTINUATION 1,000 ML IV ONE (14:05)
[2022-08-08] MEDS: HEPARIN SODIUM 1,000 UN/ML (10ML VL) IV ONE ×2 (14:09→14:19)
[2022-08-08] MEDS ORDERED: IOPAMIDOL-370 125ML BTL INJ ONE (14:26)
[2022-08-08] MEDS ORDERED: RX INFO: IV CONTRAST WAS GIVEN 1 EACH MISC MISCELLANE PRN (14:34)
--- NOTE | 2022-08-08 14:40 | P.PCN ---
Date of Procedure: 08/08/22 Operative Findings: CARDIAC CATHETERIZATION PERFORMING PHYSICIAN: Amadou Fried MD, RPVI PROCEDURE PERFORMED: 1. Selective right and left coronary angiogram 2. iFR of the left anterior descending artery INDICATION: Acute non-ST elevation myocardial infarction COMPLICATION: None APPROACH: Right radial artery LEVEL OF SEDATION: Moderate with a sedation length of 24 minutes PROCEDURE DESCRIPTION: After obtaining an informed consent, the patient was brought to cardiac corn lab technician. Local anesthesia was performed using lidocaine subcutaneously. The right radial artery was cannulated using Seldinger technique, the guidewire passed easily, following that we advanced a 5-Angolan sheath dilator assembly, the wire and dilator were removed and sheath was flushed. Following that, 2 mg of verapamil along with 5000 unit heparin were given. Selective right and left coronary angiogram using a 6-Angolan JR4 and JL 3.5 catheters. The procedure was completed there was no complication. SELECTIVE CORONARY ANGIOGRAM: The right coronary artery: Moderate caliber vessel and nondominant vessel. The RCA has a lesion proximity about 80%. Left main: Large-caliber vessel appears to be angiographically normal. Bifurcates into an LCx and LAD The left circumflex: Large caliber vessel and its a dominant vessel. The proximal LCx has mild disease only. It gives rises into an OM1 which has a lesion appeared to be in the range of 50%. The circumflex distally is angiographically normal and bifurcates into PDA and PLV branches both appeared to be angiographically normal. The left anterior descending artery: Large-caliber vessel. The proximal LAD appeared to be angiographically normal and gives rise into a large diagonal branch which appeared to have mild disease only. The mid LAD has severe intermediate lesion appeared to be in the range of 60%. We did an FFR and that came in to be nonischemic. The LAD distally appears to be angiographically normal. iFR OF THE LAD: After zeroing the Doppler wire and equalizing between the Doppler wire and guiding catheter which was JL4 guiding catheter with did iFR and that came in to be nonischemic an 0.94. The procedure was completed was no complication. Please note that heparin was given and continuous ACT monitored throughout the procedure. CONCLUSION: 1. Intermediate disease involving the mid LAD. iFR was performed and came in to be nonischemic POSTPROCEDURE MANAGEMENT: Maximize medical treatment and follow-up with the patient
[2022-08-08] MEDS ORDERED: SODIUM CHLORIDE 0.9% 1,000 ML IV SCH (14:45)
--- NOTE | 2022-08-08 17:56 | P.PN ---
Subjective Progress Note Date: 08/08/22 Patient is a 61-year-old male with PMH of MARYAN on CPAP, restless leg syndrome, hypertension, urinary urgency, dyslipidemia that presents the ED for chest pain. Patient reports chest pain that has been ongoing for the past week. His pain is intermittent but increasing in frequency which prompted him to come to the ED. He describes chest pain as pressure-like in nature, substernal with no radiation. Pain can occur at rest or with exertion. His chest pain is associated with palpitations. Patient denies any headache, lower extremity edema, nausea or vomiting, fever chills, cough, shortness of breath, changes in urination or bowel habits. No changes in appetite or weight. He denies any dizziness, numbness/weakness/tingling of the extremities. In the ED, BP was elevated at 155/105. He was tachycardic with heart rate 90. CBC was unremarkable. Coagulation panel showed a PTT of 21.4. D-dimer was 0.99. CMP showed BUN of 21. Troponin was 0.152, 0.172 with EKG showing sinus rhythm with no ST elevation. BNP was 498. Chest x-ray was negative. CTA chest showed mild cardiomegaly without acute process. Patient is admitted for chest pain, rule out acute coronary syndrome with cardiology consultation. Patient was seen and examined. No acute events overnight. Underwent cardiac cath earlier today. He was seen after his cath. He reports mild chest pressure. He denies any shortness of breath or palpitations. No nausea or vomiting. No fever chills. General: non toxic, no distress, appears at stated age Derm: warm, dry Head: atraumatic, normocephalic, symmetric Eyes: EOMI, no lid lag, anicteric sclera Mouth: no lip lesion, mucus membranes moist Cardiovascular: Good distal perfusion in all 4 extremities. Lungs: no accessory muscle use Ext: no gross muscle atrophy, no edema, no contractures Neuro: no focal neuro deficits Psych: Alert, oriented, appropriate affect #Chest pain #Elevated troponin #Elevated d-dimer Chronic conditions: MARYAN on CPAP, restless leg syndrome, hypertension, urinary urgency, dyslipidemia Based on my assessment of this patient, this patient meets a moderate complexity level of care. I have reviewed the following market research consultant notes: None. I have reviewed the results of the following tests: Repeat troponin 0.125. APTT 31.8. Lipid panel shows triglyceride 172, HDL 33.8. Cardiac cath showed 60% occlusion of the LAD. I have ordered the following tests: Echocardiogram pending. I have discussed the care of this patient with the following independent historian: None. I have independently interpreted the following test below: None. I have discussed the management of this patient with the following physician: None. This patient has a moderate risk of morbidity due to the following reasons: Patient has an acute diagnosis of chest pain with elevated troponins that poses a threat to life or bodily function. Cardiac cath shows 60% occlusion of the LAD. Continue ASA 81 mg by mouth daily, Lipitor 40 mg by mouth daily, Plavix 75 mg by mouth daily, Labetalol 100 mg by mouth twice a day. Telemetry monitoring will be continued. Echocardiogram is pending. BP 158/80. Continue antihypertensive medication as above. Ropinirole 4 mg by mouth at bedtime restarted for restless leg syndrome. Oxybutynin 10 mg by mouth daily will be restarted for urinary urgency. Patient still has TR band applied. We will continue to monitor the patient overnight for anticipated discharge tomorrow. Patient names his decision-maker if he can't make decisions for himself. Patient would like to be full code. Objective - Vital Signs Vital signs: Vital Signs Temp 97.9 F 08/08/22 12:00 Pulse 85 08/08/22 15:57 Resp 16 08/08/22 15:57 BP 158/80 08/08/22 15:57 Pulse Ox 94 L 08/08/22 15:57 FiO2 Intake & Output 08/07/22 08/08/22 08/08/22 18:59 06:59 18:59 Intake Total 74.463 245.814 Balance 74.463 245.814 Weight 147.418 kg 147.418 kg Intake: IV 100 Intake, IV Titration 74.463 145.814 Amount Heparin Sod,Pork in 0.45% 74.463 145.814 NaCl 25,000 unit In 0.45 % NaCl 1 250ml.bag @ 6.78 UNITS/KG/HR 9.995 mls/hr IV .Q24H [facility] 1928–1983 Rx#: [id number] - Labs CBC & Chem 7: 08/07/22 13:22 03/02/23 13:22 Labs: Abnormal Lab Results - Last 24 Hours (Table) 08/07/22 08/08/22 08/08/22 Range/Units 20:27 05:27 06:41 APTT 31.8 H (22.0-30.0) sec Troponin I 0.125 H* (0.000-0.034) ng/mL Triglycerides 172.00 H (0.00-149.00) mg/dL HDL Cholesterol 33.80 L (40.00-60.00) mg/dL
[2022-08-08] MEDS: Vilazodone Hcl [Viibryd] 40 MG Tablet PO SCH (18:35)
[2022-08-08] MEDS: rOPINIRole HCL 4 MG TABLET PO SCH (20:12)
[2022-08-08] MEDS: ATORVASTATIN 40 MG TAB PO SCH (20:12)
[2022-08-08] MEDS: OXYBUTYNIN 10 MG TAB.ER.24 PO SCH (20:12)
[2022-08-09] MEDS: NITROGLYCERIN OINT 1 INCH/GM PACKET TOPICAL SCH (06:01)
--- NOTE | 2022-08-09 06:14 | P.PN ---
Subjective Progress Note Date: 08/09/22 Principal diagnosis: Acute coronary syndrome The patient is a pleasant 61-year-old gentleman with hypertension and dyslipidemia and overweight was admitted to the hospital with chest discomfort and ruled in for acute coronary event. He underwent a heart catheterization and that revealed intermediate disease involving the LAD. FFR was performed and came in to be nonischemic and medical treatment was advised 08/09/2022 The patient was seen and evaluated this morning. He remains asymptomatic from a perivascular standpoint of view. He remains mechanically stable as well. The pressure is a slightly elevated. Currently he is on dual antiplatelet therapy as well as he is on beta victorino an intermediate intensity statin. I'm going to add small dose of oral nitrates to her current medical regimen to help lowering the pressure and as part of maximize medical treatment and follow-up with the patient after the echocardiogram. I would advise monitor the patient for add itional 24-hour and follow-up on the echo. Assessment Acute coronary syndrome Coronary artery disease as described above Hypertension Dyslipidemia Overweight Plan Continue the current medical regimen Continue dual antiplatelet therapy Add oral nitrates to the current medical regimen Follow-up on the echocardiogram Objective - Vital Signs Vital signs: Vital Signs Temp 98.4 F 08/09/22 03:17 Pulse 81 08/09/22 03:17 Resp 18 08/09/22 03:17 BP 130/70 08/09/22 03:17 Pulse Ox 93 L 08/09/22 03:17 FiO2 Intake & Output 08/08/22 08/08/22 08/09/22 06:59 18:59 06:59 Intake Total 74.463 965.814 Balance 74.463 965.814 Weight 147.418 kg 147.2 kg Intake: IV 100 Intake, IV Titration 74.463 145.814 Amount Heparin Sod,Pork in 0.45% 74.463 145.814 NaCl 25,000 unit In 0.45 % NaCl 1 250ml.bag @ 6.78 UNITS/KG/HR 9.995 mls/hr IV .Q24H [facility] Rx#: [id number] Oral 720 Other: Voiding Method Toilet - Labs CBC & Chem 7: 08/07/22 13:22 08/07/22 13:22 Labs: Abnormal Lab Results - Last 24 Hours (Table) 08/08/22 Range/Units 06:41 Triglycerides 172.00 H (0.00-149.00) mg/dL HDL Cholesterol 33.80 L (40.00-60.00) mg/dL
[2022-08-09 08:11] LABS: Basophils % (A) 1 %; Eosinophils # (A) 0.1 k/uL (0-0.7); Eosinophils % (A) 3 %; HCT 39.8 % (39.0-53.0); HGB 13.1 gm/dL (13.0-17.5); Lymphocytes # (A) 1.2 k/uL (1.0-4.8); Lymphocytes % (A) 25 %; MCH 31.2 pg (25.0-35.0); MCHC 32.9 g/dL (31.0-37.0); MCV 94.8 fL (80.0-100.0); Mean Platelet Volume 8.1; Monocytes # (A) 0.3 k/uL (0-1.0); Monocytes % (A) 6 %; Neutrophils % (A) 62 %; Platelet Count 224 k/uL (150-450); RBC 4.19 m/uL (4.30-5.90); RDW 13.5 % (11.5-15.5); WBC 4.8 k/uL (3.8-10.6)
[2022-08-09 08:26] LABS: African American GFR (CKD) >90 (>60 ml/min/1.73 sqM); Anion Gap 4 mmol/L; Blood Urea Nitrogen 13 mg/dL (9-20); Calcium 8.3 mg/dL (8.4-10.2); Carbon Dioxide 28 mmol/L (22-30); Chloride 107 mmol/L (98-107); Glucose 103 mg/dL (74-99); Non-African American GFR(CKD) >90 (>60 ml/min/1.73 sqM); Potassium 4.3 mmol/L (3.5-5.1); Sodium 139 mmol/L (137-145)
[2022-08-09 08:31] VITALS: RESP 17
[2022-08-09] MEDS ORDERED: ASPIRIN 81 MG PO SCH (09:00)
[2022-08-09] MEDS ORDERED: ISOSORBIDE MONONITRATE ER 30 MG TAB.ER.24H PO SCH (09:00)
[2022-08-09] MEDS ORDERED: CLOPIDOGREL 75 MG TAB PO SCH (09:00)
[2022-08-09] MEDS: LABETALOL 100 MG TAB PO SCH (09:25)
[2022-08-09] MEDS: Vilazodone Hcl [Viibryd] 40 MG Tablet PO SCH (09:47)
--- NOTE | 2022-08-09 11:31 | CA ---
Transthoracic Echo Report Name: Kurt Diego Age: 62 Gender: M : 1960 Exam Date: 08/08/2022 11:29 Exam Location: [facility] Ht (in): 72 Wt (lb): 325 Ordering Physician: Keely Gonzalez MD Attending/Referring Phys: Business English Instructor Cierra Kaufman RDCS Procedure CPT: Indications: CP Cardiac Hx: Technical Quality: Fair Contrast 1: Total Dose (mL): Contrast 2: Total Dose (mL): MEASUREMENTS (Male / Female) Normal Values 2D ECHO LA Volume 84.5 cm??? 18 - 58 / 22 - 52 cm??? M-MODE Aortic Root Diameter MM 3.5 cm LA Systolic Diameter MM 5.4 cm LA Ao Ratio MM 1.6 AV Cusp Separation MM 2.2 cm DOPPLER AV Peak Velocity 127.4 cm/s AV Peak Gradient 6.5 mmHg LVOT Peak Velocity 132.7 cm/s LVOT Peak Gradient 7.0 mmHg MV Area PHT 3.3 cm??? Mitral E Point Velocity 69.0 cm/s Mitral A Point Velocity 110.4 cm/s Mitral E to A Ratio 0.6 MV Deceleration Time 233.3 ms TR Peak Velocity 227.4 cm/s TR Peak Gradient 20.7 mmHg Right Atrial Pressure 3.0 mmHg Pulmonary Artery Systolic Pressu 23.7 mmHg Right Ventricular Systolic Press 23.7 mmHg FINDINGS Left Ventricle Left ventricular wall thickness normal. Grade 1 diastolic dysfunction. Left ventricular cavity size normal. Left ventricular ejection fraction is estimated at 55 %. Right Ventricle Normal right ventricular size. Normal right ventricular global systolic function. Right ventricular systolic pressure within normal limits. Right Atrium Right atrial dilatation. Left Atrium Severely increased left atrial volume. Mitral Valve [id number] mitral regurgitation. Aortic Valve Trileaflet aortic valve. No aortic regurgitation. No aortic stenosis. Tricuspid Valve Mild tricuspid regurgitation. Pulmonic Valve Structurally normal pulmonic valve. Pericardium Echo free space anterior to the right ventricle likely represents a fat pad. No pericardial or pleural effusion. Aorta Normal size aortic root and proximal ascending aorta. CONCLUSIONS Normal left ventricular systolic function. Impaired relaxation of the left ventricle Normal intracardiac valves Previewed by: Dr. Amadou Fried MD (Electronically Signed) Final Date: 09 August 2022 11:30
--- NOTE | 2022-08-09 11:47 | P.DS ---
Providers Date of admission: 08/07/22 16:50 Expected date of discharge: 08/09/22 Attending physician: Elio Campbell MD Consults: 08/07/22 16:50 Consult Physician Urgent Consulting Provider: [facility] Consult Reason/Comments: Non-STEMI Do you want consulting provider notified?: Yes Primary care physician: [facility] Hospital Course: Patient is a 61-year-old male with PMH of MARYAN on CPAP, restless leg syndrome, hypertension, urinary urgency, dyslipidemia that presents the ED for chest pain. Patient reports chest pain that has been ongoing for the past week. His pain is intermittent but increasing in frequency which prompted him to come to the ED. He describes chest pain as pressure-like in nature, substernal with no radiation. Pain can occur at rest or with exertion. His chest pain is associated with palpitations. Patient denies any headache, lower extremity edema, nausea or vomiting, fever chills, cough, shortness of breath, changes in urination or bowel habits. No changes in appetite or weight. He denies any dizziness, numbness/weakness/tingling of the extremities. In the ED, BP was elevated at 155/105. He was tachycardic with heart rate 90. CBC was unremarkable. Coagulation panel showed a PTT of 21.4. D-dimer was 0.99. CMP showed BUN of 21. Troponin was 0.152, 0.172 with EKG showing sinus rhythm with no ST elevation. BNP was 498. Chest x-ray was negative. CTA chest showed mild cardiomegaly without acute process. Patient is admitted for chest pain, rule out acute coronary syndrome with cardiology consultation. Patient was seen and examined. No acute events overnight. Cardiac cath showed 60% occlusion of the LAD. Cardiology recommended medical management. Imdur was added for better blood pressure control. Patient was advised to continue ASA 81 mg by mouth daily, Lipitor 40 mg by mouth daily, Plavix 75 mg by mouth daily, Labetalol 100 mg by mouth twice a day, Imdur 30 mg by mouth daily. He is advised to follow-up with his PCP within 1-2 days of discharge. He is advised follow-up with cardiology within 1 week of discharge. Pertinent studies include echocardiogram, chest CTA, chest x-ray Pertinent procedures include cardiac catheterization. General: non toxic, no distress, appears at stated age Derm: warm, dry Head: atraumatic, normocephalic, symmetric Eyes: EOMI, no lid lag, anicteric sclera Mouth: no lip lesion, mucus membranes moist Cardiovascular: Good distal perfusion in all 4 extremities, normal S1-S2, no murmurs rubs or gallops Lungs: no accessory muscle use, clear to auscultation bilaterally Ext: no gross muscle atrophy, no edema, no contractures Neuro: no focal neuro deficits Psych: Alert, oriented, appropriate affect Discharge diagnosis: #Chest pain #CAD #Elevated troponin #Elevated d-dimer Chronic conditions: MARYAN on CPAP, restless leg syndrome, hypertension, urinary urgency, dyslipidemia This complex discharge took 35 minutes to complete. Patient Condition at Discharge: Stable Plan - Discharge Summary New Discharge Prescriptions: New Aspirin 81 mg PO DAILY #30 tab Isosorbide Mononitrate ER [Imdur] 30 mg PO DAILY #30 tab Nitroglycerin Sl Tabs [Nitrostat] 0.4 mg SUBLINGUAL Q5M PRN #30 tab PRN Reason: Chest Pain Clopidogrel [Plavix] 75 mg PO DAILY #30 tab Continue Labetalol [Trandate] 100 mg PO BID Albuterol Inhaler [Ventolin Hfa Inhaler] 2 puff INHALATION RT-Q4H PRN PRN Reason: Shortness Of Breath Cyclobenzaprine [Flexeril] 10 mg PO TID PRN PRN Reason: Pain Atorvastatin [Lipitor] 40 mg PO HS rOPINIRole HCL [Requip] 4 mg PO HS Vilazodone HCl [Viibryd] 40 mg PO DAILY Oxybutynin Chloride [Oxybutynin Chloride ER] 10 mg PO DAILY Ergocalciferol (Vitamin D2) [Drisdol (50,000 Iu)] 1,250 mcg PO WEEKLY Discharge Medication List Albuterol Inhaler [Ventolin Hfa Inhaler] 2 puff INHALATION RT-Q4H PRN 08/07/22 [History] Atorvastatin [Lipitor] 40 mg PO HS 08/07/22 [History] Cyclobenzaprine [Flexeril] 10 mg PO TID PRN 08/07/22 [History] Ergocalciferol (Vitamin D2) [Drisdol (50,000 Iu)] 1,250 mcg PO WEEKLY 08/07/22 [History] Labetalol [Trandate] 100 mg PO BID 08/07/22 [History] Oxybutynin Chloride [Oxybutynin Chloride ER] 10 mg PO DAILY 08/07/22 [History] Vilazodone HCl [Viibryd] 40 mg PO DAILY 08/07/22 [History] rOPINIRole HCL [Requip] 4 mg PO HS 08/07/22 [History] Aspirin 81 mg PO DAILY #30 tab 08/09/22 [Rx] Clopidogrel [Plavix] 75 mg PO DAILY #30 tab 08/09/22 [Rx] Isosorbide Mononitrate ER [Imdur] 30 mg PO DAILY #30 tab 08/09/22 [Rx] Nitroglycerin Sl Tabs [Nitrostat] 0.4 mg SUBLINGUAL Q5M PRN #30 tab 08/09/22 [Rx] Follow up Appointment(s)/Referral(s): Amadou Fried MD [STAFF PHYSICIAN] - 1 Week Diana Alvarez PAC [REFERRING] - 1-2 days Discharge Disposition: HOME SELF-CARE
[2022-08-09 11:50] VITALS: BP 131/80; PULSE 72; TEMP 98.3
[2022-08-09] MEDS: ACETAMINOPHEN TAB 325 MG TAB PO PRN (12:06)
--- NOTE | 2022-08-15 06:39 | CDI ---
Documentation Clarification Form Date: 08/15/22 From: Lena Garcia Admit Date: 08/07/2022 4:50:00 PM Patient Name: Kurt Diego Visit Number: [id number] Discharge Date: 08/09/2022 2:26:00 PM ATTENTION: The Clinical Documentation Specialists (CDI) and [facility] Coding Staff appreciate your assistance in clarifying documentation. Please respond to the clarification below the line at the bottom and electronically sign. The CDI & [facility] Coding staff will review the response and follow-up if needed. Please note: Queries are made part of the Legal Health Record. If you have any questions, please contact the author of this message via ITS. Dr. Keely Gonzalez, Your patient has troponin level(s) of: 0.152, 0.172, 0.125. Please clarify if there is an additional diagnosis and/or clinical significance related to this value. Patient history/risk factors: Hypercholesterolemia, HTN, CAD, MARYAN, morbid obesity w BMI of 41.7, depression, RLS, urinary urgency, OA Clinical indicators: Presents with chest pain and SOB for the last 5 days. Treatment: LHC, ASA, Lipitor, Plavix, Labetalol, Imdur Is there an additional diagnosis and/or clinical significance related to the above lab result/information: [ x ] NSTEMI type 1 [ ] Type 2 HI due to (specify cause ) [ ] Non-ischemic myocardial injury [ ] No additional diagnosis/Not clinically significant [ ] Other, please specify [ ] Unable to determine MTDD
== END 2022-08-09 14:26 | disposition home or self-care (01) | DRG 281 ==
LOC: EC 12:42 → 3SCARD 16:50
PROVIDERS: ADMIT Student in an Organized Health Care Education/Training Program; ATTEND Student in an Organized Health Care Education/Training Program
PROC: B2111ZZ Fluoroscopy of Multiple Coronary Arteries using Low Osmolar Contrast (ICD-10-PCS; principal; 2022-08-08 12:20)
PROC: 4A023N7 Measurement of Cardiac Sampling and Pressure, Left Heart, Percutaneous Approach (ICD-10-PCS; principal; 2022-08-08 12:20)
PROC: 4A033BC Measurement of Arterial Pressure, Coronary, Percutaneous Approach (ICD-10-PCS; principal; 2022-08-08 12:20)
DX: I21.4 Non-ST elevation (NSTEMI) myocardial infarction (principal); Z68.41 Body mass index [BMI] 40.0-44.9, adult; E66.01 Morbid (severe) obesity due to excess calories; E78.00 Pure hypercholesterolemia, unspecified; I10 Essential (primary) hypertension; I25.10 Atherosclerotic heart disease of native coronary artery without angina pectoris; G47.33 Obstructive sleep apnea (adult) (pediatric); F32.A Depression, unspecified; G25.81 Restless legs syndrome; R39.15 Urgency of urination; M19.90 Unspecified osteoarthritis, unspecified site; Z79.899 Other long term (current) drug therapy; Z91.011 Allergy to milk products
CPT/HCPCS: 36415; 71046; 71275; 80048; 80053; 80061; 83735; 83880; 84484; 85025; 85379; 85610; 85730; 93005; 93306; 93454; 93799; 94760; 96365; 96375; 99291

== ENCOUNTER → 2022-11-20 | Outpatient (CLI) | payer BC | END | disposition home or self-care (01) | LOC: LABWHC1 10:11 | PROVIDERS: ATTEND Radiology Radiation Oncology | DX: C61 Malignant neoplasm of prostate (principal); C91.10 Chronic lymphocytic leukemia of B-cell type not having achieved remission; Z92.3 Personal history of irradiation | CPT/HCPCS: 36415; 84153 ==

== ENCOUNTER → 2023-01-16 | Outpatient (CLI) | payer BC ==
--- NOTE | 2023-01-17 09:19 | PE ---
EXAMINATION TYPE: PET CT fusion skull to thigh DATE OF EXAM: 01/16/2023 CLINICAL INDICATION:Male, 62 years old with history of C61; TECHNIQUE: Following the intravenous administration of 6.2 mCi of Ga-68 Illuccix (PSMA), whole body images are performed from the skull base to the midthigh. Images are reviewed on the computer in th e coronal, axial, and sagittal planes. Reconstructed rotating images are created on independent work station and reviewed on the computer. A non-contrast CT is performed in conjunction with the PET sc an. CT DLP: 537 mGycm, Automated exposure control for dose reduction was used. COMPARISON: CT 08/07/2022, PET/CT None, FINDINGS: Mediastinal SUV mean is 0.6. Hepatic parenchyma SUV mean is 3.8. SKULL BASE AND NECK: No suspicious radiotracer activity. CHEST, MEDIASTINUM, AND HILAR REGION: No suspicious radiotracer activity. ABDOMEN AND PELVIS: The prostate gland is surgically absent. No abnormal radiotracer uptake. MUSCULOSKELETAL STRUCTURES: No suspicious radiotracer activity. OTHER CT: The heart is mildly enlarged for size. There is an obstructing comparison the distal right ureter measuring up to 8 mm with hydroureter and hydronephrosis. Scattered colonic diverticula. Small hiatal hernia is present. IMPRESSION: 1. Surgically absent prostate without evidence for suspicious radiotracer uptake at this time. If PS A continues to rise consider follow-up scan. 2. Mild/moderate right hydroureteronephrosis secondary obstructing 8 mm calculus in the distal urete r near the ureterovesicular junction. Urologic consultation recommended.
== END | disposition home or self-care (01) ==
LOC: RADPETMAIN 15:56
PROVIDERS: ATTEND Radiology Radiation Oncology
DX: C61 Malignant neoplasm of prostate (principal); N13.2 Hydronephrosis with renal and ureteral calculous obstruction
CPT/HCPCS: 78815; A9596

== ENCOUNTER → 2023-01-26 | Outpatient (CLI) | payer BC ==
--- NOTE | 2023-01-26 17:54 | XR ---
EXAMINATION TYPE: XR KUB DATE OF EXAM: 01/26/2023 Comparison: PET/CT 823 Clinical History: 62-year-old male right kidney stone, N20.0 Findings: Lung bases are clear. Nonobstructive bowel gas pattern. There is a 1.1 cm calcification in the right side of the pelvis. Otherwise, no obvious suspicious bin al calcifications radiographically apparent. Impression: Suspect similar positioning of the 1.1 cm distal right ureteral calculus.
== END | disposition home or self-care (01) ==
LOC: RADXRMAIN 12:46
PROVIDERS: ATTEND Urology
DX: N20.2 Calculus of kidney with calculus of ureter (principal)
CPT/HCPCS: 74018

== ENCOUNTER → 2023-02-05 | Outpatient (CLI) | payer BC ==
[2023-02-05 13:21] LABS: Basophils # (A) 0.06 X 10*3/uL (0.00-0.10); Basophils % (A) 0.9 %; Eosinophils # (A) 0.13 X 10*3/uL (0.04-0.35); Eosinophils % (A) 1.9 %; HCT 46.3 % (39.6-50.0); HGB 15.3 d/dL (13.0-17.0); Lymphocytes # (A) 1.75 X 10*3/uL (0.90-5.00); Lymphocytes % (A) 25.2 %; MCH 31.9 pg (27.0-32.0); MCV 96.5 FL (80.0-97.0); Mean Platelet Volume 10.9 FL (9.5-12.2); Monocytes # (A) 0.52 X 10*3/uL (0.20-1.00); Monocytes % (A) 7.5 %; NRBC Per 100 WBC 0 X 10*3/uL (0.00-0.01); Neutrophils # (A) 4.46 X 10*3/uL (1.80-7.70); Neutrophils % (A) 64.1 %; Platelet Count 255 X 10*3/uL (140-440); RDW 13.2 % (11.5-14.5); WBC 6.95 X 10*3/uL (4.50-10.00)
[2023-02-05 13:33] LABS: BUN/Creat Ratio 19.09 Ratio (12.00-20.00); Calcium 9.6 mg/dL (8.7-10.3); Carbon Dioxide 27.7 mmol/L (21.6-31.8); Chloride 102 mmol/L (96-109); Glucose 96 mg/dL (70-110); Potassium 4.7 mmol/L (3.5-5.5); Sodium 140 mmol/L (135-145)
== END | disposition home or self-care (01) ==
LOC: LABWHC1 09:08
PROVIDERS: ATTEND Urology
DX: Z01.812 Encounter for preprocedural laboratory examination (principal); N20.1 Calculus of ureter
CPT/HCPCS: 36415; 80048; 85025

== ENCOUNTER → 2023-03-16 | Outpatient (CLI) | payer BC | END | disposition home or self-care (01) | LOC: LABWHC1 11:48 | PROVIDERS: ATTEND Radiology Radiation Oncology | DX: C61 Malignant neoplasm of prostate (principal); C91.10 Chronic lymphocytic leukemia of B-cell type not having achieved remission; R97.21 Rising PSA following treatment for malignant neoplasm of prostate; Z92.3 Personal history of irradiation | CPT/HCPCS: 36415; 84153 ==

== ENCOUNTER → 2023-04-03 | Outpatient (CLI) | payer BC ==
[2023-04-03 08:26] LABS: African American GFR (CKD) >90 (>60 ml/min/1.73 sqM); Blood Urea Nitrogen 18 mg/dL (9-20); Non-African American GFR(CKD) >90 (>60 ml/min/1.73 sqM)
--- NOTE | 2023-04-03 09:44 | CT ---
EXAMINATION TYPE: CT ChestAbdPelvis w con CT DLP: 2779.4 mGycm, Automated exposure control for dose reduction was used. DATE OF EXAM: 04/03/2023 8:54 AM COMPARISON: Pet/CT 01/16/2023. CLINICAL INDICATION:Male, 63 years old with history of C61 prostate ca, Prostate CA Technique: Multiple axial images of the chest, abdomen, and pelvis were obtained. Two-dimensional cor onal and sagittal reconstructions were obtained. Contrast used:100 mL of Isovue 300 with IV Contrast, Oral contrast used: with Oral Contrast Findings: CHEST: LUNGS/ PLEURA: No focal consolidation, pneumothorax or pleural fusion. No new or enlarging pulmonary nodules. Right major fissure intrafissural lymph nodes are stable. Series 3 image 38. AIRWAY: Patent and unremarkable. HEART: Size within normal limits. MEDIASTINUM: No gross evidence of adenopathy. VASCULATURE: No aortic aneurysm. No evidence for pulmonary embolus. MUSCULOSKELETAL: No acute osseous abnormalities. SOFT TISSUES/LYMPH NODES: Unremarkable. LOWER NECK: No significant findings. ABDOMEN: ABDOMEN LIVER: Unremarkable GALLBLADDER AND BILE DUCTS: Unremarkable. PANCREAS: Unremarkable. SPLEEN: Unremarkable. ADRENAL GLANDS: Unremarkable. KIDNEYS AND URETERS: No evidence of hydronephrosis or renal calculus. The ureters are unremarkable. S imple appearing bilateral renal cysts. PELVIS BLADDER: Unremarkable REPRODUCTIVE: The prostate gland is surgically absent. There is no lymphadenopathy or abnormal soft t issue in the surgical bed. ABDOMEN & PELVIS STOMACH AND BOWEL: No evidence of bowel obstruction. Scattered colonic diverticula. The appendix is n ormal. PERITONEUM: No evidence of pneumoperitoneum or free fluid. VASCULATURE: No evidence of aortic aneurysm. MUSCULOSKELETAL: No acute osseous abnormalities, similar appearance to the right iliac bone. LYMPH NODES: No gross evidence for lymphadenopathy. SOFT TISSUE/ABDOMINAL WALL: Fat-containing inguinal hernias. IMPRESSION: Prostatectomy changes without evidence for recurrence. No suspicious osseous lesions visualized.
--- NOTE | 2023-04-03 14:11 | NM ---
EXAMINATION TYPE: NM bone scan whole body DATE OF EXAM: 04/03/2023 COMPARISON: CT chest abdomen pelvis of the same date. CLINICAL INDICATION: Male, 63 years old with history of C61 prostate ca; Delayed whole-body scanning was performed following the injection of 23.5 mCi Tc 99m MDP. Images acq uired 5.25 hours post injection. FINDINGS: No abnormal uptake is identified within the appendicular or axial skeleton to suggest metastatic dise ase. There is increased uptake within the bilateral shoulder, sternoclavicular, bilateral knees, and bilat eral feet consistent with degenerative changes. No other photopenic areas or areas of increased activ ity are identified. Physiologic radiotracer activity is demonstrated in the kidneys and bladder. IMPRESSION: Nothing to suggest metastatic disease.
== END | disposition home or self-care (01) ==
LOC: RADNMMAIN 07:29
PROVIDERS: ATTEND Radiology Radiation Oncology
DX: C61 Malignant neoplasm of prostate (principal); R97.21 Rising PSA following treatment for malignant neoplasm of prostate; Z92.3 Personal history of irradiation
CPT/HCPCS: 82565; 84520; 71260; 74177; 36415; 78306; A9503; Q9967

== ENCOUNTER → 2023-12-16 | Outpatient (CLI) | payer MEDICARE ==
--- NOTE | 2023-12-16 08:51 | US ---
EXAMINATION TYPE: US liver DATE OF EXAM: 12/16/2023 COMPARISON: CT 03/30 CLINICAL INDICATION: Male, 63 years old with history of R74.01 ELEVATION OF LEVELS OF LIVER TRANSAMIN ASE L; LFTs TECHNIQUE: Multiple sonographic images of the right upper quadrant are obtained. FINDINGS: EXAM MEASUREMENTS: Liver Length: 16.5 cm Gallbladder Wall: 0.1 cm CBD: 0.4 cm Right Kidney: 13.3x5.6x6.2 cm PLUMBING MANAGER NOTES: Pancreas: Tail obscured by overlying bowel gas Liver: increased echogenicity, attenuation, size. Coarse echotexture , no dilated ducts masses or distortions. Gallbladder: wnl Evidence for sonographic Blanco's sign: No CBD: wnl Right Kidney: No hydronephrosis or masses seen exam limited by bowel gas and body habitus IMPRESSION: Hepatic steatosis no suspicious masses.
== END | disposition home or self-care (01) ==
LOC: RADUSWWP 07:14
PROVIDERS: ATTEND Family Medicine
DX: K76.0 Fatty (change of) liver, not elsewhere classified (principal); R74.01 Elevation of levels of liver transaminase levels
CPT/HCPCS: 76705

== ENCOUNTER 2024-05-03 09:39 | Inpatient (IN) | payer BC, MEDICARE ==
--- NOTE | 2024-05-03 10:15 | ED ---
Chest Pain HPI - General Chief Complaint: Chest Pain Stated Complaint: irregular heart rate Time Seen by Provider: 05/03/24 09:59 Source: patient, EMS, RN notes reviewed Mode of arrival: EMS Limitations: no limitations - History of Present Illness Initial Comments: This is a 64-year-old male with history of hypertension presenting with irregular heart rhythm found today. Patient endorses seeing his primary care regarding shortness of breath and dizziness with exertion for the past 4 days. Patient denies associated chest pain, shortness of breath/dizziness at rest, pallor, sweating. Patient endorses neurology finding a tachycardic heart rate of 151 1 month ago but was never addressed at that time. Patient otherwise denies significant cardiac history. Endorses use of labetalol for hypertension and nitroglycerin as needed. Patient denies fever, chills, body aches, dyspnea/dizziness at rest, abdominal pain, N/V/D. Onset/Timin -: days(s) Onset: during rest Severity scale (1-10): 0 Worsens With: exertion Treatments Prior to Arrival: nitroglycerin, oxygen - Related Data Home Medications Medication Instructions Recorded Confirmed Labetalol [Trandate] 100 mg PO BID 08/07/22 05/03/24 Atorvastatin [Lipitor] 40 mg PO HS 05/03/24 05/03/24 FLUoxetine HCL [PROzac] 20 mg PO DAILY 05/03/24 05/03/24 Omeprazole 20 mg PO DAILY 05/03/24 05/03/24 rOPINIRole HCL [Requip] 5 mg PO HS 05/03/24 05/03/24 Previous Rx's Medication Instructions Recorded Aspirin 81 mg PO DAILY #30 tab 08/09/22 Clopidogrel [Plavix] 75 mg PO DAILY #30 tab 08/09/22 Isosorbide Mononitrate ER [Imdur] 30 mg PO DAILY #30 tab 08/09/22 Nitroglycerin Sl Tabs [Nitrostat] 0.4 mg SUBLINGUAL Q5M PRN #30 tab 08/09/22 Allergies Allergy/AdvReac Type Severity Reaction Status Date / Time dairy products AdvReac LACTOSE Uncoded 05/03/24 10:42 INTOLERANT/Diarrhea/BLOATING Review of Systems ROS Statement: Those systems with pertinent positive or pertinent negative responses have been documented in the HPI. ROS Other: All systems not noted in ROS Statement are negative. Past Medical History Past Medical History: Osteoarthritis (OA), Sleep Apnea/CPAP/BIPAP Additional Past Medical History / Comment(s): SLEEP APNEA- USING C-PAP SET AT [age] History of Any Multi-Drug Resistant Organisms: None Reported Past Surgical History: Orthopedic Surgery Additional Past Surgical History / Comment(s): ROTATOR CUFF REPAIR TARUN. SHOULDERS. LT SHOULDER SURGERY 1976. COLONOSCOPY 2010 Past Anesthesia/Blood Transfusion Reactions: No Reported Reaction Smoking Status: Never smoker - Past Family History Mother Family Medical History: No Reported History General Exam Limitations: no limitations General appearance: alert, in no apparent distress Head exam: Present: atraumatic, normocephalic, normal inspection Eye exam: Present: normal appearance, PERRL, EOMI. Absent: scleral icterus, conjunctival injection, periorbital swelling ENT exam: Present: normal exam, mucous membranes moist Neck exam: Present: normal inspection. Absent: tenderness, meningismus, lymphadenopathy Respiratory exam: Present: normal lung sounds bilaterally. Absent: respiratory distress, wheezes, rales, rhonchi, stridor Cardiovascular Exam: Present: regular rate, tachycardia, normal heart sounds. Absent: systolic murmur, diastolic murmur, rubs, gallop, clicks GI/Abdominal exam: Present: soft, normal bowel sounds. Absent: distended, tenderness, guarding, rebound, rigid Extremities exam: Present: normal inspection, full ROM, normal capillary refill. Absent: tenderness, pedal edema, joint swelling, calf tenderness Back exam: Present: normal inspection Neurological exam: Present: alert, oriented X3, CN II-XII intact Psychiatric exam: Present: normal affect, normal mood Skin exam: Present: warm, dry, intact, normal color. Absent: rash Course Vital Signs 05/03/24 05/03/24 05/03/24 09:41 11:10 11:43 Temperature 98.3 F Pulse Rate 135 H 135 H 133 H Respiratory 16 18 16 Rate Blood Pressure 147/105 151/116 O2 Sat by Pulse 97 98 97 Oximetry 05/03/24 05/03/24 05/03/24 12:04 13:14 13:32 Temperature 98.0 F Pulse Rate 121 H 122 H 114 H Respiratory 18 20 Rate Blood Pressure 151/105 156/122 O2 Sat by Pulse 97 97 Oximetry 05/03/24 05/03/24 05/03/24 15:00 18:00 18:40 Temperature 98.8 F Pulse Rate 105 H 86 106 H Respiratory 16 18 19 Rate Blood Pressure 133/96 113/78 O2 Sat by Pulse 96 98 96 Oximetry 05/03/24 20:18 Temperature Pulse Rate 101 H Respiratory 18 Rate Blood Pressure 140/82 O2 Sat by Pulse 96 Oximetry Chest Pain MDM - MDM Was pt. sent in by a medical professional or institution (, MAYDA, SCAN COORDINATOR, urgent care, hospital, or fpc...) When possible be specific @ -No Did you speak to anyone other than the patient for history (EMS, parent, family, police, friend...)? What history was obtained from this source @ -No Did you review nursing and triage notes (agree or disagree)? Why? @ -I reviewed and agree with nursing and triage notes Were old charts reviewed (outside hosp., previous admission, EMS record, old EKG, old radiological studies, urgent care reports/EKG's, fpc records)? Report findings @ -EKG from August 2022 shows sinus rhythm with prolonged QT Differential Diagnosis (chest pain, altered mental status, abdominal pain women, abdominal pain men, vaginal bleeding, weakness, fever, dyspnea, syncope, headache, dizziness, GI bleed, back pain, seizure, CVA, palpatations, mental health, musculoskeletal)? @ -Differential Chest Pain: Stable Angina, Unstable Angina, STEMI, NSTEMI Aortic Dissection, Pneumothorax, Musculoskeletal, Esophageal Spasm GERD, Cholecystitis, Pancreatitis, Zoster, this is not meant to be an all-inclusive list. EKG interpreted by me (3pts min.). @ -Atrial flutter with tachycardia and RVR. No ST changes or T wave inversion. Ventricular rate 136 bpm, QRS duration 94 ms, QTc 216 ms. X-rays interpreted by me (1pt min.). @ -Chest x-ray shows no acute cardiopulmonary process CT interpreted by me (1pt min.). @ -None done U/S interpreted by me (1pt. min.). @ -None done What testing was considered but not performed or refused? (CT, X-rays, U/S, labs)? Why? @ -None What meds were considered but not given or refused? Why? @ -None Did you discuss the management of the patient with other professionals (professionals i.e. , MAYDA, SCAN COORDINATOR, lab, RT, psych nurse, social work manager, reroller hand, teacher, sheriff officer, director of casework department)? Give summary @ -Spoke to Dr. Baig regarding patient care and agreed to admit Was smoking cessation discussed for >3mins.? @ -No Was critical care preformed (if so, how long)? @ -No Were there social determinants of health that impacted care today? How? (Homelessness, low income, unemployed, alcoholism, drug addiction, transportation, low edu. Level, literacy, decrease access to med. care, custodial, rehab)? @ -No Was there de-escalation of care discussed even if they declined (Discuss DNR or withdrawal of care, Hospice)? DNR status @ -No What co-morbidities impacted this encounter? (DM, HTN, Smoking, COPD, CAD, Cancer, CVA, ARF, Chemo, Hep., AIDS, mental health diagnosis, sleep apnea, morbid obesity)? @ -Hypertension Was patient admitted / discharged? Hospital course, mention meds given and route, prescriptions, significant lab abnormalities, going to OR and other pertinent info. @ -Initial lab work unremarkable with negative troponin and BNP of 1230. Chest x-ray shows no acute cardiopulmonary process. Patient started on Cardizem and drip following bolus and heparin drip also started. Spoke to Dr. Baig who agreed to admit patient for new arrhythmia. [id number] score of 2. Undiagnosed new problem with uncertain prognosis? @ -Discovery of new arrhythmia Drug Therapy requiring intensive monitoring for toxicity (Heparin, Nitro, Insulin, Cardizem)? @ -Low intensity heparin drip Were any procedures done? @ -No Diagnosis/symptom? @ -Atrial flutter, JON Acute, or Chronic, or Acute on Chronic? @ -Acute Uncomplicated (without systemic symptoms) or Complicated (systemic symptoms)? @ -Complicated Side effects of treatment? @ -No Exacerbation, Progression, or Severe Exacerbation? @ -Exacerbation Poses a threat to life or bodily function? How? (Chest pain, USA, MD, pneumonia, PE, COPD, DKA, ARF, appy, cholecystitis, CVA, Diverticulitis, Homicidal, Suicidal, threat to staff... and all critical care pts) @ -No Disposition Clinical Impression: Atrial flutter Disposition: ADMITTED IP TO THIS HOSP Condition: Good Is patient prescribed a controlled substance at d/c from ED?: No Time of Disposition: 13:00 Decision Date: 05/03/24 Decision Time: 13:00
[2024-05-03 10:25] LABS: Basophils % (A) 1 %; Eosinophils # (A) 0.1 k/uL (0-0.7); Eosinophils % (A) 2 %; HCT 41.6 % (39.0-53.0); HGB 13.7 gm/dL (13.0-17.5); Lymphocytes # (A) 1.2 k/uL (1.0-4.8); Lymphocytes % (A) 21 %; MCH 30.9 pg (25.0-35.0); MCHC 33.1 g/dL (31.0-37.0); MCV 93.4 fL (80.0-100.0); Mean Platelet Volume 8.2; Monocytes # (A) 0.4 k/uL (0-1.0); Monocytes % (A) 6 %; Neutrophils # (A) 3.9 k/uL (1.3-7.7); Neutrophils % (A) 68 %; Platelet Count 219 k/uL (150-450); RBC 4.45 m/uL (4.30-5.90); RDW 13.2 % (11.5-15.5); WBC 5.8 k/uL (3.8-10.6)
--- NOTE | 2024-05-03 10:28 | XR ---
EXAMINATION TYPE: XR chest 2V DATE OF EXAM: 05/03/2024 10:21 AM COMPARISON: Chest radiographs from 08/07/2022 TECHNIQUE: XR chest 2V Frontal and lateral views of the chest. CLINICAL INDICATION:Male, 64 years old with history of SOB, dizziness with exertion; FINDINGS: Lungs/Pleura: There is no evidence of pleural effusion, focal consolidation, or pneumothorax. Pulmonary vascularity: Unremarkable. Heart/mediastinum: Cardiomediastinal silhouette is unremarkable. Musculoskeletal: Multiple level degenerative disc disease changes seen throughout the spine. IMPRESSION: No acute cardiopulmonary disease/process. [facility], , 05/03/2024 10:26 AM
[2024-05-03 10:36] LABS: ALT 26 U/L (4-49); African American GFR (CKD) >90 (>60 ml/min/1.73 sqM); Albumin 3.9 g/dL (3.5-5.0); Anion Gap 8 mmol/L; Blood Urea Nitrogen 18 mg/dL (9-20); Calcium 9.2 mg/dL (8.4-10.2); Carbon Dioxide 22 mmol/L (22-30); Chloride 109 mmol/L (98-107); Glucose 98 mg/dL (74-99); Non-African American GFR(CKD) >90 (>60 ml/min/1.73 sqM); Sodium 139 mmol/L (137-145); Total Bilirubin 0.9 mg/dL (0.2-1.3); Total Protein 6.3 g/dL (6.3-8.2)
[2024-05-03 10:39] LABS: Magnesium 2.1 mg/dL (1.6-2.3); Potassium 4.3 mmol/L (3.5-5.1)
[2024-05-03 10:40] LABS: AST 28 U/L (17-59); Alkaline Phosphatase 70 U/L (38-126); Partial Thromboplastin Time 22.6 sec (22.0-30.0); Prothrombin Time 11.1 sec (10.0-12.5)
[2024-05-03 10:44] LABS: NT-Pro-B-Type Natriuretic Pept 1230 pg/mL
[2024-05-03] MEDS: HEPARIN SODIUM 1,000 UN/ML (10ML VL) IV ONE (11:37)
[2024-05-03] MEDS: HEPARIN SOD,PORK IN 0.45% NACL 25,000 UNIT in 0.45% NACL 1 250ML.BAG IV SCH (11:40)
[2024-05-03] MEDS: DILTIAZEM DRIP BOLUS FROM BAG 1 MG SOLN IV ONE (11:42)
[2024-05-03] MEDS: DILTIAZEM 5 MG/ML 5 ML VIAL IVP STA (11:43)
[2024-05-03] MEDS: DILTIAZEM 125 MG in SODIUM CHLORIDE 0.9% 100 ML IV SCH (11:43)
[2024-05-03] MEDS ORDERED: NALOXONE 0.4 MG/ML 1 ML VIAL IV PRN (11:49)
--- NOTE | 2024-05-03 13:35 | P.HPIM ---
History of Present Illness H&P Date: 05/03/24 Chief Complaint: Shortness of breath This is a 64-year-old male past medical history of obesity, hypertension, hyperlipidemia, GERD, nonobstructive coronary artery disease presents emergency department after following up with primary care physician regarding shortness of breath. Patient states that he has been having episodes of shortness of breath, palpitation, diaphoresis. He went to his primary care physician who performed an EKG which demonstrated atrial flutter with RVR. He was advised to go to the emergency department for further evaluation. In the ER patient was started on a Cardizem drip, heparin drip is being admitted for further workup. Patient states that he has had a cardiac cath in the past, demonstrating 60% occlusion some of his vessels but is not sure which ones, no stents were ever deployed. He states that he has been on Plavix since then. He denies any history of shortness of breath or palpitations, he does not recall exactly been diagnosed with atrial fibrillation/a flutter. He is compliant with prescribed medications. Patient states that he does drink 3 to 4 cups of coffee daily, denies any energy drink usage, drug abuse, thyroid problems. Review of Systems 14 point review of system performed, all negative except pertinent positives found in HPI Past Medical History Past Medical History: Coronary Artery Disease (CAD), GERD/Reflux, Hyperlipidemia, Hypertension, Osteoarthritis (OA), Sleep Apnea/CPAP/BIPAP Additional Past Medical History / Comment(s): SLEEP APNEA- USING C-PAP SET AT [age] History of Any Multi-Drug Resistant Organisms: None Reported Past Surgical History: Orthopedic Surgery Additional Past Surgical History / Comment(s): ROTATOR CUFF REPAIR TARUN. SHOULDERS. LT SHOULDER SURGERY 1976. COLONOSCOPY 2009 Past Anesthesia/Blood Transfusion Reactions: No Reported Reaction - Sexual Orientation/Gender Identity What was your sex assigned at ?: Male Smoking Status: Never smoker - Past Family History Mother Family Medical History: Congestive Heart Failure (CHF), Hypertension Medications and Allergies Home Medications Medication Instructions Recorded Confirmed Type Labetalol [Trandate] 100 mg PO BID 08/07/22 05/03/24 History Aspirin 81 mg PO DAILY #30 tab 08/09/22 05/03/24 Rx Clopidogrel [Plavix] 75 mg PO DAILY #30 tab 08/09/22 05/03/24 Rx Isosorbide Mononitrate ER [Imdur] 30 mg PO DAILY #30 tab 08/09/22 05/03/24 Rx Nitroglycerin Sl Tabs [Nitrostat] 0.4 mg SUBLINGUAL Q5M PRN #30 tab 08/09/22 05/03/24 Rx Atorvastatin [Lipitor] 40 mg PO HS 05/03/24 05/03/24 History FLUoxetine HCL [PROzac] 20 mg PO DAILY 05/03/24 05/03/24 History Omeprazole 20 mg PO DAILY 05/03/24 05/03/24 History rOPINIRole HCL [Requip] 5 mg PO HS 05/03/24 05/03/24 History Allergies Allergy/AdvReac Type Severity Reaction Status Date / Time dairy products AdvReac LACTOSE Uncoded 05/03/24 10:42 INTOLERANT/Diarrhea/BLOATING Physical Exam Vitals: Vital Signs Temp Pulse Resp BP Pulse Ox 05/03/24 13:14 98.0 F 122 H 20 156/122 97 05/03/24 12:04 121 H 18 151/105 97 05/03/24 11:43 133 H 16 151/116 97 05/03/24 11:10 135 H 18 98 05/03/24 09:41 98.3 F 135 H 16 147/105 97 Intake and Output 05/02/24 05/03/24 05/03/24 22:59 06:59 14:59 Other: Weight 136.078 kg General: [nontoxic], [no distress], [appears at stated age] Derm: [warm], [dry] Head: [atraumatic], [normocephalic], [symmetric] Eyes: [EOMI], [no lid lag], [anicteric sclera] Mouth: [no lip lesion], [mucus membranes moist] Cardiovascular: Irregularly irregular, [no murmur], [positive posterior tibial pulse bilateral], Lungs: [CTA bilateral], [no rhonchi, no rales] , [no accessory muscle use] Abdominal: [soft], [ nontender to palpation], [no guarding], [no appreciable organomegaly] Ext: [no gross muscle atrophy], [no edema], [no contractures] Neuro: [ CN II-XI grossly intact], [no focal neuro deficits] Psych: [Alert], [oriented], [appropriate affect] Results CBC & Chem 7: 05/03/24 10:13 05/03/24 10:13 Labs: Abnormal Lab Results - Last 24 Hours (Table) 05/03/24 Range/Units 10:13 Chloride 109 H (98-107) mmol/L Assessment and Plan Assessment: Atrial flutter with RVR Nonobstructive coronary disease Essential hypertension Hyperlipidemia Obstructive sleep apnea Obesity Patient started on Cardizem drip in the ER Heparin drip and also initiated [id number] score is over 4 Consult placed to cardiology Wean off Cardizem drip as tolerated Can be started on metoprolol or p.o. Cardizem once heart rate is under 100 bpm Echocardiogram ordered Thyroid studies ordered Continuous cardiac telemetry Restart home medications were appropriate
[2024-05-03] MEDS: HEPARIN SODIUM 1,000 UN/ML (10ML VL) IV PRN (19:21)
[2024-05-03] MEDS: ATORVASTATIN 40 MG TAB PO SCH (21:54)
[2024-05-03] MEDS: LABETALOL 100 MG TAB PO SCH (22:35)
--- NOTE | 2024-05-04 06:58 | CA ---
Transthoracic Echo Report Name: Kurt Diego Age: 64 Gender: M : 1960 Exam Date: 05/03/2024 13:58 Exam Location: [facility] Ht (in): 74 Wt (lb): 300 Ordering Physician: Shakeel French Attending/Referring Phys: Mild Disabilities Teacher Jaye Clark RDCS Procedure CPT: Indications: New arrhythmia Cardiac Hx: A-FIB Technical Quality: Poor Contrast 1: Definity Total Dose (mL): 2 Contrast 2: Total Dose (mL): MEASUREMENTS (Male / Female) Normal Values 2D ECHO LV Diastolic Diameter PLAX 5.6 cm 4.2 - 5.9 / 3.9 - 5.3 cm LV Systolic Diameter PLAX 4.7 cm IVS Diastolic Thickness 1.3 cm 0.6 - 1.0 / 0.6 - 0.9 cm LVPW Diastolic Thickness 1.4 cm 0.6 - 1.0 / 0.6 - 0.9 cm LV Relative Wall Thickness 0.5 RV Internal Dim ED PLAX 2.4 cm LA Systolic Diameter LX 5.0 cm 3.0 - 4.0 / 2.7 - 3.8 cm LA Volume 115.3 cm??? 18 - 58 / 22 - 52 cm??? LA Volume Index 42.4 cm???/m??? 16 - 28 cm???/m??? M-MODE Aortic Root Diameter MM 3.7 cm LA Systolic Diameter MM 4.9 cm LA Ao Ratio MM 1.3 AV Cusp Separation MM 2.1 cm DOPPLER TR Peak Velocity 244.6 cm/s TR Peak Gradient 23.9 mmHg Right Ventricular Systolic Press 32.3 mmHg FINDINGS Left Ventricle Left ventricular ejection fraction is estimated at 35-40 %. Left ventricular cavity size normal. Moderately reduced global left ventricular systolic function.Mildly increased left ventricular wall thickness. Right Ventricle Mild right ventricular dilatation. Right ventricular systolic pressure within normal limits. Right Atrium Moderate right atrial dilatation. Left Atrium Moderately increased left atrial diameter. Severely increased left atrial volume. Moderately increased left atrial area. Mitral Valve Structurally normal mitral valve. Mild to moderate mitral regurgitation. No mitral stenosis.mitral annular calcification. Aortic Valve Trileaflet aortic valve. No aortic valve stenosis, mild regurgitation.aortic valve not well visualized. Tricuspid Valve Structurally normal tricuspid valve. Mild tricuspid regurgitation. No tricuspid stenosis. Pulmonic Valve Pulmonic valve not well visualized. Pericardium No pericardial or pleural effusion. Aorta Aorta at upper limits of normal. CONCLUSIONS Technically difficult study. Definity ECHO contrast used for improved visualization of the endocardial borders (inadequate visualization of two or more contiguous segments). Moderately impaired left ventricular systolic function with global hypokinesis [id number] mitral regurgitation Mild aortic and tricuspid regurgitation Previewed by: Dr. Karrie Sauceda MD (Electronically Signed) Final Date: 04 May 2024 06:57
[2024-05-04 07:07] LABS: Basophils # (A) 0.1 k/uL (0-0.2); Basophils % (A) 1 %; Eosinophils # (A) 0.2 k/uL (0-0.7); Eosinophils % (A) 3 %; HCT 42.6 % (39.0-53.0); HGB 13.8 gm/dL (13.0-17.5); Lymphocytes # (A) 1.5 k/uL (1.0-4.8); Lymphocytes % (A) 26 %; MCH 30.9 pg (25.0-35.0); MCHC 32.4 g/dL (31.0-37.0); MCV 95.4 fL (80.0-100.0); Mean Platelet Volume 7.7; Monocytes # (A) 0.3 k/uL (0-1.0); Monocytes % (A) 6 %; Neutrophils # (A) 3.6 k/uL (1.3-7.7); Neutrophils % (A) 61 %; Platelet Count 211 k/uL (150-450); Prothrombin Time 11.3 sec (10.0-12.5); RBC 4.46 m/uL (4.30-5.90); RDW 12.9 % (11.5-15.5); WBC 5.9 k/uL (3.8-10.6)
[2024-05-04] MEDS: FLUoxetine HCL 20 MG CAP PO SCH (08:20)
[2024-05-04] MEDS: ASPIRIN 81 MG PO SCH (08:20)
[2024-05-04] MEDS: PANTOPRAZOLE 40 MG TABLET PO SCH (08:20)
[2024-05-04] MEDS: CLOPIDOGREL 75 MG TAB PO SCH (08:21)
[2024-05-04] MEDS: METOPROLOL TARTRATE 50 MG TAB PO SCH (10:28)
[2024-05-04] MEDS: DEXTROSE 5% IN WATER 100 ML with AMIODARONE 150 MG IV ONE (10:33)
[2024-05-04] MEDS: AMIODARONE 360 MG in DEXTROSE 5% IN WATER 200 ML IV ONE (10:34)
--- NOTE | 2024-05-04 10:53 | P.CRDCN ---
History of Present Illness History of present illness: HISTORY OF PRESENT ILLNESS: This is a 64-year-old male with a past medical history significant for coronary artery disease, hypertension, hyperlipidemia, diabetes, and obesity. Patient fo llows in the office with Dr. Fried. We have been asked to see the patient in consultation for a flutter with RVR. Patient examined at the bedside. Patient states he has been having episodes of shortness of breath and palpitations. He was seen at his PCP office yesterday where an EKG was completed revealing atrial flutter and the patient was directed to come to the emergency room. The patient was found to be in a flutter with RVR. He was started on IV Cardizem. This morning, the patient remains in atrial flutter with controlled ventricular rate. Echocardiogram revealed new cardiomyopathy with EF 35 to 40% with global hypokinesis. DIAGNOSTICS: - EKG reveals atrial flutter with RVR - Chest xray negative for acute process - Laboratory data: WBC 5.9. Hemoglobin 13.8. Platelet count 211. Sodium 139. Potassium 4.3. BUN 18. Creatinine 0.89. Magnesium 2.1. Troponin negative x 1. proBNP 1230. TSH 2.040. - Current home cardiac medications include aspirin 81 mg daily, Plavix 75 mg daily, Lipitor 40 mg at night, Imdur 30 mg daily, labetalol 100 mg twice a day - Echocardiogram obtained this admission reveals ejection fraction 35 to 40%, global hypokinesis, mild to moderate MR, mild AI, mild TR -Previous echocardiogram in August 2022 revealed normal EF with mild MR - Cardiac catheterization history: August 2022 revealing intermediate disease of the LAD. FFR was nonischemic. REVIEW OF SYSTEMS: At the time of my exam: CONSTITUTIONAL: Denies fever or chills. HEENT: Denies blurred vision, vision changes, or eye pain. Denies hemoptysis CARDIOVASCULAR: Denies chest pain. Denies orthopnea. Denies PND. Denies palpitations RESPIRATORY: Denies shortness of breath. GASTROINTESTINAL: Denies abdominal pain. Denies nausea or vomiting. HEMATOLOGIC: Denies bleeding disorders. GENITOURINARY: Denies any blood in urine. SKIN: Denies pruitis. Denies rash. PHYSICAL EXAM: VITAL SIGNS: Reviewed. GENERAL: Well-developed in no acute distress. HEENT: Head is normocephalic. Pupils are equal, round. Sclerae anicteric. Mucous membranes of the mouth are moist. Neck supple. No JVD or thyromegaly LUNGS: Respirations even and unlabored. Lungs essentially clear to auscultation bilaterally. HEART: Irregular rate and rhythm. S1 and S2 heard. ABDOMEN: Soft. Nondistended. Nontender. EXTREMITIES: Normal range of motion. No clubbing or cyanosis. Peripheral pulses intact. No lower extremity edema NEUROLOGIC: Awake and alert. Oriented x 3. ASSESSMENT: New onset typical atrial flutter with RVR Coronary artery disease with intermediate disease of the LAD, FFR nonischemic New onset cardiomyopathy, 35 to 40% with global hypokinesis, likely tachycardia induced, previous EF normal in 2022 Hypertension Hyperlipidemia Diabetes Obesity: BMI 38.7 PLAN: TSH checked and within normal limits at 2.040 2D echo obtained and reviewed Discontinue IV Cardizem Continue IV heparin. Discontinue Plavix. Continue aspirin 81 mg daily Discontinue labetalol. Add metoprolol tartrate 50 mg twice a day Begin IV amiodarone bolus and drip per protocol Patient was given breakfast this morning so JOSE/CV unable to be performed today. We will continue with rate control at this time. If JOSE and cardioversion is required, would likely be scheduled on Thursday. Further recommendations pending patient course Nurse practitioner note has been reviewed by physician. Signing provider agrees with the documented findings, assessment, and plan of care documented by VICE PRESIDENT OF NURSING as a scribe. Past Medical History Past Medical History: Cancer, Osteoarthritis (OA), Sleep Apnea/CPAP/BIPAP Additional Past Medical History / Comment(s): SLEEP APNEA- USING C-PAP SET AT 10-11, Prostate cancer History of Any Multi-Drug Resistant Organisms: None Reported Past Surgical History: Orthopedic Surgery Additional Past Surgical History / Comment(s): ROTATOR CUFF REPAIR TARUN. SHOULDER S. LT SHOULDER SURGERY 1976. COLONOSCOPY 2009. Prostatectomy 2020 with radiation Past Anesthesia/Blood Transfusion Reactions: No Reported Reaction Past Psychological History: Depression Smoking Status: Never smoker Past Alcohol Use History: Occasional Past Drug Use History: None Reported - Past Family History Mother Family Medical History: No Reported History Medications and Allergies Home Medications Medication Instructions Recorded Confirmed Type Labetalol [Trandate] 100 mg PO BID 08/07/22 05/03/24 History Aspirin 81 mg PO DAILY #30 tab 08/09/22 05/03/24 Rx Clopidogrel [Plavix] 75 mg PO DAILY #30 tab 08/09/22 05/03/24 Rx Isosorbide Mononitrate ER [Imdur] 30 mg PO DAILY #30 tab 08/09/22 05/03/24 Rx Nitroglycerin Sl Tabs [Nitrostat] 0.4 mg SUBLINGUAL Q5M PRN #30 tab 08/09/22 05/03/24 Rx Atorvastatin [Lipitor] 40 mg PO HS 05/03/24 05/03/24 History FLUoxetine HCL [PROzac] 20 mg PO DAILY 05/03/24 05/03/24 History Omeprazole 20 mg PO DAILY 05/03/24 05/03/24 History rOPINIRole HCL [Requip] 5 mg PO HS 05/03/24 05/03/24 History Allergies Allergy/AdvReac Type Severity Reaction Status Date / Time dairy products AdvReac LACTOSE Uncoded 05/03/24 10:42 INTOLERANT/Diarrhea/BLOATING Physical Exam Vitals: Vital Signs Temp Pulse Pulse Resp BP BP Pulse Ox 05/04/24 03:59 98.0 F 82 12 144/85 96 05/04/24 00:00 98.1 F 96 18 125/74 94 L 05/03/24 21:56 98.0 F 82 16 132/90 96 05/03/24 20:18 101 H 18 140/82 96 05/03/24 18:40 106 H 19 96 05/03/24 18:00 98.8 F 86 18 113/78 98 05/03/24 15:00 105 H 16 133/96 96 05/03/24 13:32 114 H 05/03/24 13:14 98.0 F 122 H 20 156/122 97 05/03/24 12:04 121 H 18 151/105 97 05/03/24 11:43 133 H 16 151/116 97 05/03/24 11:10 135 H 18 98 05/03/24 09:41 98.3 F 135 H 16 147/105 97 Intake and Output 05/03/24 05/04/24 05/04/24 22:59 06:59 14:59 Intake Total 77.015 266.380 Balance 77.015 266.380 Intake: Intake, IV Titration 77.015 266.380 Amount Diltiazem 125 mg In 98 Sodium Chloride 0.9% 100 ml @ 5 MG/HR 5 mls/hr IV .Q24H [facility] Rx#:[id number] Heparin Sod,Pork in 0.45% 77.015 168.380 NaCl 25,000 unit In 0.45 % NaCl 1 250ml.bag @ 7.35 UNITS/KG/HR 10.002 mls/ hr IV .Q24H [facility] Rx#: [id number] Other: # Voids 1 2 Weight 136.078 kg 136.7 kg Results 05/04/24 06:41 05/03/24 10:13 Cardiac Enzymes 05/03/24 05/03/24 Range/Units 10:13 10:13 AST 28 (17-59) U/L Troponin I <0.012 (0.000-0.034) ng/mL Coagulation 05/03/24 05/03/24 05/04/24 Range/Units 10:13 16:50 01:55 PT 11.1 (10.0-12.5) sec APTT 22.6 26.9 35.1 H (22.0-30.0) sec 05/04/24 05/04/24 Range/Units 06:41 06:41 PT 11.3 (10.0-12.5) sec APTT 50.4 H (22.0-30.0) sec CBC 05/03/24 05/04/24 Range/Units 10:13 06:41 WBC 5.8 5.9 (3.8-10.6) k/uL RBC 4.45 4.46 (4.30-5.90) m/uL Hgb 13.7 13.8 (13.0-17.5) gm/dL Hct 41.6 42.6 (39.0-53.0) % Plt Count 219 211 (150-450) k/uL Comprehensive Metabolic Panel 05/03/24 Range/Units 10:13 Sodium 139 (137-145) mmol/L Potassium 4.3 (3.5-5.1) mmol/L Chloride 109 H (98-107) mmol/L Carbon Dioxide 22 (22-30) mmol/L BUN 18 (9-20) mg/dL Creatinine 0.89 (0.66-1.25) mg/dL Glucose 98 (74-99) mg/dL Calcium 9.2 (8.4-10.2) mg/dL AST 28 (17-59) U/L ALT 26 (4-49) U/L Alkaline Phosphatase 70 (38-126) U/L Total Protein 6.3 (6.3-8.2) g/dL Albumin 3.9 (3.5-5.0) g/dL Current Medications Generic Name Dose Route Start Last Admin Trade Name Freq PRN Reason Stop Dose Admin Aspirin 81 mg 05/04/24 09:00 Aspirin 81 Mg PO DAILY [facility] Atorvastatin Calcium 40 mg 05/03/24 21:00 05/03/24 21:54 Atorvastatin 40 Mg Tab PO 40 mg HS [facility] Administration Clopidogrel Bisulfate 75 mg 05/04/24 09:00 Clopidogrel 75 Mg Tab PO DAILY [facility] Fluoxetine HCl 20 mg 05/04/24 09:00 Fluoxetine Hcl 20 Mg Cap PO DAILY [facility] Heparin Sodium (Porcine) 0 unit 05/03/24 11:11 05/04/24 02:57 Heparin Sodium 1,000 Un/Ml (10ml Vl) IV 3,400 unit PER PROTOCOL PRN Administration Low PTT Protocol Heparin Sodium/Sodium Chloride 250 mls @ 10.002 mls/hr 05/03/24 11:15 05/04/24 06:37 25,000 unit/ Sodium Chloride IV 12.35 units/kg/hr .Q24H [facility] 16.806 mls/hr Administration Protocol 7.35 UNITS/KG/HR Diltiazem HCl 125 mg/ Sodium 125 mls @ 5 mls/hr 05/03/24 11:30 05/03/24 23:41 Chloride IV 10 mg/hr .Q24H [facility] 10 mls/hr Administration 5 MG/HR Labetalol HCl 100 mg 05/03/24 21:00 05/03/24 22:35 Labetalol 100 Mg Tab PO 100 mg BID [facility] Administration Naloxone HCl 0.2 mg 05/03/24 11:49 Naloxone 0.4 Mg/Ml 1 Ml Vial IV Q2M PRN Opioid Reversal Pantoprazole Sodium 40 mg 05/04/24 09:00 Pantoprazole 40 Mg Tablet PO DAILY [facility] Ropinirole HCl 5 mg 05/03/24 21:00 05/03/24 21:53 Ropinirole Hcl 1 Mg Tab PO 5 mg HS [facility] Administration Intake and Output 05/03/24 05/04/24 05/04/24 22:59 06:59 14:59 Intake Total 77.015 266.380 Balance 77.015 266.380 Intake: Intake, IV Titration 77.015 266.380 Amount Diltiazem 125 mg In 98 Sodium Chloride 0.9% 100 ml @ 5 MG/HR 5 mls/hr IV .Q24H [facility] Rx#:[id number] Heparin Sod,Pork in 0.45% 77.015 168.380 NaCl 25,000 unit In 0.45 % NaCl 1 250ml.bag @ 7.35 UNITS/KG/HR 10.002 mls/ hr IV .Q24H [facility] Rx#: [id number] Other: # Voids 1 2 Weight 136.078 kg 136.7 kg 05/04/24 06:41 05/03/24 10:13
--- NOTE | 2024-05-04 14:38 | P.PN ---
Subjective History of Present Illness H&P Date: 05/03/24 Chief Complaint: Shortness of breath This is a 64-year-old male past medical history of obesity, hypertension, hyperlipidemia, GERD, nonobstructive coronary artery disease presents emergency department after following up with primary care physician regarding shortness of breath. Patient states that he has been having episodes of shortness of breath, palpitation, diaphoresis. He went to his primary care physician who performed an EKG which demonstrated atrial flutter with RVR. He was advised to go to the emergency department for further evaluation. In the ER patient was started on a Cardizem drip, heparin drip is being admitted for further workup. Patient states that he has had a cardiac cath in the past, demonstrating 60% occlusion some of his vessels but is not sure which ones, no stents were ever deployed. He states that he has been on Plavix since then. He denies any history of shortness of breath or palpitations, he does not recall exactly been diagnosed with atrial fibrillation/a flutter. He is compliant with prescribed medications. Patient states that he does drink 3 to 4 cups of coffee daily, denies any energy drink usage, drug abuse, thyroid problems. Review of Systems 14 point review of system performed, all negative except pertinent positives found in HPI Past Medical History Past Medical History: Coronary Artery Disease (CAD), GERD/Reflux, Hyperlipidemia, Hypertension, Osteoarthritis (OA), Sleep Apnea/CPAP/BIPAP Additional Past Medical History / Comment(s): SLEEP APNEA- USING C-PAP SET AT 10-11 History of Any Multi-Drug Resistant Organisms: None Reported Past Surgical History: Orthopedic Surgery Additional Past Surgical History / Comment(s): ROTATOR CUFF REPAIR TARUN. SHOULDERS. LT SHOULDER SURGERY 1976. COLONOSCOPY 2009 Past Anesthesia/Blood Transfusion Reactions: No Reported Reaction - Sexual Orientation/Gender Identity What was your sex assigned at ?: Male Smoking Status: Never smoker - Past Family History Mother Family Medical History: Congestive Heart Failure (CHF), Hypertension Medications and Allergies Home Medications Medication Instructions Recorded Confirmed Type Labetalol [Trandate] 100 mg PO BID 08/07/22 05/03/24 History Aspirin 81 mg PO DAILY #30 tab 08/09/22 05/03/24 Rx Clopidogrel [Plavix] 75 mg PO DAILY #30 tab 08/09/22 05/03/24 Rx Isosorbide Mononitrate ER [Imdur] 30 mg PO DAILY #30 tab 08/09/22 05/03/24 Rx Nitroglycerin Sl Tabs [Nitrostat] 0.4 mg SUBLINGUAL Q5M PRN #30 tab 08/09/22 05/03/24 Rx Atorvastatin [Lipitor] 40 mg PO HS 05/03/24 05/03/24 History FLUoxetine HCL [PROzac] 20 mg PO DAILY 05/03/24 05/03/24 History Omeprazole 20 mg PO DAILY 05/03/24 05/03/24 History rOPINIRole HCL [Requip] 5 mg PO HS 05/03/24 05/03/24 History Allergies Allergy/AdvReac Type Severity Reaction Status Date / Time dairy products AdvReac LACTOSE Uncoded 05/03/24 10:42 INTOLERANT/Diarrhea/BLOATING Physical Exam Vitals: Vital Signs Temp Pulse Resp BP Pulse Ox 05/03/24 13:14 98.0 F 122 H 20 156/122 97 05/03/24 12:04 121 H 18 151/105 97 05/03/24 11:43 133 H 16 151/116 97 05/03/24 11:10 135 H 18 98 05/03/24 09:41 98.3 F 135 H 16 147/105 97 Intake and Output 05/02/24 05/03/24 05/03/24 22:59 06:59 14:59 Other: Weight 136.078 kg General: [nontoxic], [no distress], [appears at stated age] Derm: [warm], [dry] Head: [atraumatic], [normocephalic], [symmetric] Eyes: [EOMI], [no lid lag], [anicteric sclera] Mouth: [no lip lesion], [mucus membranes moist] Cardiovascular: Irregularly irregular, [no murmur], [positive posterior tibial pulse bilateral], Lungs: [CTA bilateral], [no rhonchi, no rales] , [no accessory muscle use] Abdominal: [soft], [ nontender to palpation], [no guarding], [no appreciable o rganomegaly] Ext: [no gross muscle atrophy], [no edema], [no contractures] Neuro: [ CN II-XI grossly intact], [no focal neuro deficits] Psych: [Alert], [oriented], [appropriate affect] Results CBC & Chem 7: 05/03/24 10:13 05/03/24 10:13 Labs: Abnormal Lab Results - Last 24 Hours (Table) 05/03/24 Range/Units 10:13 Chloride 109 H (98-107) mmol/L Assessment and Plan Assessment: Atrial flutter with RVR Nonobstructive coronary disease Essential hypertension Hyperlipidemia Obstructive sleep apnea Obesity Patient started on Cardizem drip in the ER Heparin drip and also initiated [id number] score is over 4 Consult placed to cardiology Wean off Cardizem drip as tolerated Can be started on metoprolol or p.o. Cardizem once heart rate is under 100 bpm Echocardiogram ordered Thyroid studies ordered Continuous cardiac telemetry Restart home medications were appropriate 05/04 Patient seen and examined at bedside Maintains A-fib however his heart rates come down under 100 bpm Discussed with cardiology at bedside, possible JOSE cardioversion on Thursday Otherwise patient is stable at this time Continue heparin drip Discontinue Cardizem IV drip Discontinue Plavix Patient started on low-dose aspirin Metoprolol titrate 50 mg twice daily Objective - Vital Signs Vital signs: Vital Signs Temp 97.5 F L 05/04/24 08:00 Pulse 107 H 05/04/24 12:05 Resp 16 05/04/24 12:05 BP 130/79 05/04/24 12:05 Pulse Ox 95 05/04/24 12:05 FiO2 Intake & Output 05/03/24 05/04/24 05/04/24 18:59 06:59 18:59 Intake Total 10.833 343.395 420 Balance 10.833 343.395 420 Weight 136.078 kg 136.7 kg Intake: Intake, IV Titration 10.833 343.395 Amount Diltiazem 125 mg In 10.833 98 Sodium Chloride 0.9% 100 ml @ 5 MG/HR 5 mls/hr IV .Q24H [facility] Rx#:[id number] Heparin Sod,Pork in 0.45% 245.395 NaCl 25,000 unit In 0.45 % NaCl 1 250ml.bag @ 7.35 UNITS/KG/HR 10.002 mls/ hr IV .Q24H [facility] Rx#: [id number] Oral 420 Other: # Voids 2 1 - Labs CBC & Chem 7: 05/04/24 06:41 11/26/24 10:13 Labs: Abnormal Lab Results - Last 24 Hours (Table) 05/04/24 05/04/24 Range/Units 01:55 06:41 APTT 35.1 H 50.4 H (22.0-30.0) sec
[2024-05-04] MEDS: AMIODARONE 450 MG in DEXTROSE 5% IN WATER 250 ML IV SCH (16:59)
--- NOTE | 2024-05-05 07:59 | XR ---
EXAMINATION TYPE: XR chest 1V portable DATE OF EXAM: 05/05/2024 COMPARISON: 05/03/2024 CLINICAL INDICATION: Male, 64 years old with history of congestion; TECHNIQUE: Single frontal view of the chest is obtained. FINDINGS: Hyperinflation compatible COPD. Scattered senescent parenchymal change. Interval pulmonary venous congestion mild interstitial prominence.. The cardiac silhouette size is stable. The osseous structures are intact. IMPRESSION: Hyperinflation compatible COPD. Scattered senescent parenchymal change. Interval pulmona ry venous congestion mild interstitial prominence.. [facility], , 05/05/2024 7:56 AM
[2024-05-05] MEDS: APIXABAN 5 MG TAB PO SCH (12:40)
[2024-05-05] MEDS: FUROSEMIDE 10 MG/ML 4 ML VIAL IV STA (12:41)
[2024-05-05] MEDS ORDERED: fentaNYL (PF) 50 MCG/ML 2 ML AMP IVP PRN (13:21)
[2024-05-05] MEDS ORDERED: MIDAZOLAM 2 MG/2 ML VIAL IV PRN (13:21)
[2024-05-05] MEDS ORDERED: BENZOCAINE SPRAY 1 CAN TOPICAL PRN (13:21)
--- NOTE | 2024-05-05 13:23 | P.PN ---
Subjective HISTORY OF PRESENT ILLNESS: This is a 64-year-old male with a past medical history significant for coronary artery disease, hypertension, hyperlipidemia, diabetes, and obesity. Patient follows in the office with Dr. Fried. We have been asked to see the patient in consultation for a flutter with RVR. Patient examined at the bedside. Patient states he has been having episodes of shortness of breath and palpitations. He was seen at his PCP office yesterday where an EKG was completed revealing atrial flutter and the patient was directed to come to the emergency room. The patient was found to be in a flutter with RVR. He was started on IV Cardizem. This morning, the patient remains in atrial flutter with controlled ventricular rate. Echocardiogram revealed new cardiomyopathy with EF 35 to 40% with global hypokinesis. DIAGNOSTICS: - EKG reveals atrial flutter with RVR - Chest xray negative for acute process - Laboratory data: WBC 5.9. Hemoglobin 13.8. Platelet count 211. Sodium 139. Potassium 4.3. BUN 18. Creatinine 0.89. Magnesium 2.1. Troponin negative x 1. proBNP 1230. TSH 2.040. - Current home cardiac medications include aspirin 81 mg daily, Plavix 75 mg daily, Lipitor 40 mg at night, Imdur 30 mg daily, labetalol 100 mg twice a day - Echocardiogram obtained this admission reveals ejection fraction 35 to 40%, g lobal hypokinesis, mild to moderate MR, mild AI, mild TR -Previous echocardiogram in August 2022 revealed normal EF with mild MR - Cardiac catheterization history: August 2022 revealing intermediate disease of the LAD. FFR was nonischemic. 05/05/2024 Patient examined this morning at the bedside. Patient currently denies chest pain or pressure. He denies shortness of breath at rest. He remains in atrial flutter with heart rate around 120. He remains on IV amiodarone and IV heparin. PHYSICAL EXAM: VITAL SIGNS: Reviewed. GENERAL: Well-developed in no acute distress. HEENT: Head is normocephalic. Pupils are equal, round. Sclerae anicteric. Mucous membranes of the mouth are moist. Neck supple. No JVD or thyromegaly LUNGS: Respirations even and unlabored. Lungs essentially clear to auscultation bilaterally. HEART: Irregular rate and rhythm. S1 and S2 heard. ABDOMEN: Soft. Nondistended. Nontender. EXTREMITIES: Normal range of motion. No clubbing or cyanosis. Peripheral pulses intact. No lower extremity edema NEUROLOGIC: Awake and alert. Oriented x 3. ASSESSMENT: New onset typical atrial flutter with RVR Coronary artery disease with intermediate disease of the LAD, FFR nonischemic New onset cardiomyopathy, 35 to 40% with global hypokinesis, likely tachycardia induced, previous EF normal in 2022 Hypertension Hyperlipidemia Diabetes Obesity: BMI 38.7 PLAN: TSH checked and within normal limits at 2.040 2D echo obtained and reviewed Continue IV amiodarone at 0.5 mg/min UNTIL JOSE/CV. Continue IV heparin. Begin Eliquis 5 mg twice a day N.p.o. at midnight Patient will undergo JOSE and cardioversion tomorrow with Dr. Sauceda Further recommendations pending patient course Nurse practitioner note has been reviewed by physician. Signing provider agrees with the documented findings, assessment, and plan of care documented by INTERVENTIONAL RADIOLOGY TECH as a scribe. Objective - Vital Signs Vital signs: Vital Signs Temp 97.7 F 05/05/24 11:40 Pulse 116 H 05/05/24 11:40 Resp 17 05/05/24 11:40 BP 141/99 05/05/24 11:40 Pulse Ox 96 05/05/24 11:40 FiO2 Intake & Output 05/04/24 05/05/24 05/05/24 18:59 06:59 18:59 Intake Total 600 454.983 520.565 Balance 600 454.983 520.565 Weight 137.7 kg Intake: IV 20 Invasive Line 1 10 Invasive Line 2 10 Intake, IV Titration 454.983 264.565 Amount Amiodarone 450 mg In 223.06 Dextrose 5% in Water 250 ml @ 0.5 MG/MIN 16.667 mls/hr IV .Q15H [facility] Rx#: [id number] Heparin Sod,Pork in 0.45% 231.923 264.565 NaCl 25,000 unit In 0.45 % NaCl 1 250ml.bag @ 7.35 UNITS/KG/HR 10.002 mls/ hr IV .Q24H [facility] Rx#: [id number] Oral 600 236 Other: # Voids 1 4 - Labs CBC & Chem 7: 05/04/24 06:41 11/26/24 10:13 Labs: Abnormal Lab Results - Last 24 Hours (Table) 05/05/24 Range/Units 09:57 APTT 48.6 H (22.0-30.0) sec
[2024-05-05] MEDS ORDERED: AMIODARONE 450 MG in DEXTROSE 5% IN WATER 250 ML IV SCH (13:45)
--- NOTE | 2024-05-05 14:55 | P.PN ---
Subjective Progress Note Date: 05/05/24 Principal diagnosis: Atrila fib with RVR The patient is awaiting JOSE cardioversion on Thursday. Objective - Vital Signs Vital signs: Vital Signs Temp 97.7 F 05/05/24 11:40 Pulse 116 H 05/05/24 11:40 Resp 17 05/05/24 11:40 BP 141/99 05/05/24 11:40 Pulse Ox 96 05/05/24 11:40 FiO2 Intake & Output 05/04/24 05/05/24 05/05/24 18:59 06:59 18:59 Intake Total 600 454.983 540.565 Balance 600 454.983 540.565 Weight 137.7 kg Intake: IV 40 Invasive Line 1 20 Invasive Line 2 20 Intake, IV Titration 454.983 264.565 Amount Amiodarone 450 mg In 223.06 Dextrose 5% in Water 250 ml @ 0.5 MG/MIN 16.667 mls/hr IV .Q15H [facility] Rx#: [id number] Heparin Sod,Pork in 0.45% 231.923 264.565 NaCl 25,000 unit In 0.45 % NaCl 1 250ml.bag @ 7.35 UNITS/KG/HR 10.002 mls/ hr IV .Q24H [facility] Rx#: [id number] Oral 600 236 Other: # Voids 1 4 - Constitutional General appearance: Present: no acute distress - Respiratory Respiratory: bilateral: CTA - Cardiovascular Rhythm: irregularly irregular - Gastrointestinal General gastrointestinal: Present: normal bowel sounds - Psychiatric Psychiatric: Present: appropriate affect - Labs CBC & Chem 7: 05/04/24 06:41 05/03/24 10:13 Labs: Abnormal Lab Results - Last 24 Hours (Table) 05/05/24 Range/Units 09:57 APTT 48.6 H (22.0-30.0) sec Assessment and Plan (1) Atrial flutter Current Visit: Yes Status: Acute Code(s): I48.92 - UNSPECIFIED ATRIAL FLUTTER SNOMED Code(s): 1258430 (2) GERD (gastroesophageal reflux disease) Current Visit: Yes Status: Acute Code(s): K21.9 - GASTRO-ESOPHAGEAL REFLUX DISEASE WITHOUT ESOPHAGITIS SNOMED Code(s): 617695376 Plan: The patient continues to be in atrial fibrillation plan for JOSE cardioversion on Thursday. Patient is on a heparin drip, cardiology input of reflux will add Tums.
[2024-05-06] MEDS: IV FLUID CONTINUATION 1,000 ML IV ONE (09:43)
[2024-05-06] MEDS ORDERED: LIDOCAINE 1% INJ 10MG/ML (20 ML MDV) ONE (10:15)
[2024-05-06] MEDS ORDERED: PROPOFOL 10 MG/ML 20 ML VIAL IV ONE (10:15)
--- NOTE | 2024-05-06 10:36 | P.PN ---
Subjective Progress Note Date: 05/06/24 PROGRESS NOTE The patient is a 64-year-old maleWith a history of CAD, hypertension, hyperlipidemia, diabetes who presented with atrial flutter with rapid ventricular response and his echocardiogram showed evidence of global hypokinesis that was normal in 2022. He continues to be in atrial flutter. He denies any chest discomfort but continues to be dyspneic and fatigued, he has occasional palpitations. Medications: IV amiodarone, metoprolol tartrate 50 mg twice a day, aspirin, Eliquis 5 mg twice a day, atorvastatin 40 mg daily PHYSICAL EXAMINATION: Blood pressure 146/100 heart rate 112 LUNGS: Clear to auscultation HEART: Irregular rate and rhythm, S1, S2. No S3. Systolic ejection murmur ABDOMEN: Soft, nontender, no organomegaly EXTREMETIES: No edema IMPRESSION: 1. Atrial flutter with rapid ventricular response 2. Cardiomyopathy probably related to the atrial flutter 3. CAD 4. Hyperlipidemia PLAN: 1. Proceed with JOSE guided cardioversion 2. Continue beta-victorino and anticoagulation 3. Depending on blood pressure and BECKI inhibitor 4. Depending on his progress further recommendations will be made Objective - Vital Signs Vital signs: Vital Signs Temp 98.1 F 05/06/24 04:00 Pulse 112 H 05/06/24 09:45 Resp 18 05/06/24 09:45 BP 146/104 05/06/24 09:45 Pulse Ox 96 05/06/24 09:45 FiO2 Intake & Output 05/05/24 05/06/24 05/06/24 18:59 06:59 18:59 Intake Total 658.565 744.449 Balance 658.565 744.449 Weight 136.6 kg Intake: IV 40 20 Invasive Line 1 20 Invasive Line 2 20 20 Intake, IV Titration 264.565 244.449 Amount Amiodarone 450 mg In 244.449 Dextrose 5% in Water 250 ml @ 0.5 MG/MIN 16.667 mls/hr IV .Q15H [facility] Rx#: [id number] Heparin Sod,Pork in 0.45% 264.565 NaCl 25,000 unit In 0.45 % NaCl 1 250ml.bag @ 7.35 UNITS/KG/HR 10.002 mls/ hr IV .Q24H [facility] Rx#: [id number] Oral 354 480 Other: Voiding Method Toilet # Voids 2 4 - Labs CBC & Chem 7: 05/04/24 06:41 05/03/24 10:13
--- NOTE | 2024-05-06 10:38 | P.PCN ---
Date of Procedure: 05/06/24 Operative Findings: Indication: Atrial flutter Procedure Description: After explaining the procedure to the patient, it's risk and complications, blood pressure, heart rate and O2 saturation were monitored. The throat was sprayed with Cetacaine. Patient received sedation per anesthesia department l. The probe was introduced into the esophagus without difficulty. Images were obtained. Following that, the probe was removed. There was no immediate complication. Findings: Left atrial size is dilated, left atrial appendage is normal. Left ventricular systolic function is mildly to moderately impaired with global hypokinesis and ejection fraction of 40 to 45%. The aortic valve, mitral and tricuspid valve appears to be normal. Descending thoracic aorta appears to be normal. No pericardial effusion was noted. Contrast bubble study revealed no shunting across the interatrial septum. No pericardial effusion was noted. Doppler: Pulse wave and color Doppler were obtained, and revealed mild mitral and tricuspid regurgitation there was no shunting by color Doppler study Conclusion: 1. Dilated left atrium with normal appearance of the left atrial appendage 2. Moderate global hypokinesis of the left ventricle 3. Mild mitral and tricuspid regurgitation 4. No shunting across the interatrial septum 5. Normal appearance of the descending thoracic aorta Cardioversion: After obtaining sedated state and JOSE synchronized biphasic cardioversion using 150 J was performed with confucianist of sinus mechanism, there was no immediate complications.
--- NOTE | 2024-05-06 10:46 | P.PN ---
Subjective History of Present Illness H&P Date: 05/03/24 Chief Complaint: Shortness of breath This is a 64-year-old male past medical history of obesity, hypertension, hyperlipidemia, GERD, nonobstructive coronary artery disease presents emergency department after following up with primary care physician regarding shortness of breath. Patient states that he has been having episodes of shortness of breath, palpitation, diaphoresis. He went to his primary care physician who performed an EKG which demonstrated atrial flutter with RVR. He was advised to go to the emergency department for further evaluation. In the ER patient was started on a Cardizem drip, heparin drip is being admitted for further workup. Patient states that he has had a cardiac cath in the past, demonstrating 60% occlusion some of his vessels but is not sure which ones, no stents were ever deployed. He states that he has been on Plavix since then. He denies any history of shortness of breath or palpitations, he does not recall exactly been diagnosed with atrial fibrillation/a flutter. He is compliant with prescribed medications. Patient states that he does drink 3 to 4 cups of coffee daily, denies any energy drink usage, drug abuse, thyroid problems. Review of Systems 14 point review of system performed, all negative except pertinent positives found in HPI Past Medical History Past Medical History: Coronary Artery Disease (CAD), GERD/Reflux, Hyperlipidemia, Hypertension, Osteoarthritis (OA), Sleep Apnea/CPAP/BIPAP Additional Past Medical History / Comment(s): SLEEP APNEA- USING C-PAP SET AT 10-11 History of Any Multi-Drug Resistant Organisms: None Reported Past Surgical History: Orthopedic Surgery Additional Past Surgical History / Comment(s): ROTATOR CUFF REPAIR TARUN. SHOULDERS. LT SHOULDER SURGERY 1976. COLONOSCOPY 2009 Past Anesthesia/Blood Transfusion Reactions: No Reported Reaction - Sexual Orientation/Gender Identity What was your sex assigned at ?: Male Smoking Status: Never smoker - Past Family History Mother Family Medical History: Congestive Heart Failure (CHF), Hypertension Medications and Allergies Home Medications Medication Instructions Recorded Confirmed Type Labetalol [Trandate] 100 mg PO BID 08/07/22 05/03/24 History Aspirin 81 mg PO DAILY #30 tab 08/09/22 05/03/24 Rx Clopidogrel [Plavix] 75 mg PO DAILY #30 tab 08/09/22 05/03/24 Rx Isosorbide Mononitrate ER [Imdur] 30 mg PO DAILY #30 tab 08/09/22 05/03/24 Rx Nitroglycerin Sl Tabs [Nitrostat] 0.4 mg SUBLINGUAL Q5M PRN #30 tab 08/09/22 05/03/24 Rx Atorvastatin [Lipitor] 40 mg PO HS 05/03/24 05/03/24 History FLUoxetine HCL [PROzac] 20 mg PO DAILY 05/03/24 05/03/24 History Omeprazole 20 mg PO DAILY 05/03/24 05/03/24 History rOPINIRole HCL [Requip] 5 mg PO HS 05/03/24 05/03/24 History Allergies Allergy/AdvReac Type Severity Reaction Status Date / Time dairy products AdvReac LACTOSE Uncoded 05/03/24 10:42 INTOLERANT/Diarrhea/BLOATING Physical Exam Vitals: General: [nontoxic], [no distress], [appears at stated age] Derm: [warm], [dry] Head: [atraumatic], [normocephalic], [symmetric] Eyes: [EOMI], [no lid lag], [anicteric sclera] Mouth: [no lip lesion], [mucus membranes moist] Cardiovascular: Irregularly irregular, [no murmur], [positive posterior tibial pulse bilateral], Lungs: [CTA bilateral], [no rhonchi, no rales] , [no accessory muscle use] Abdominal: [soft], [ nontender to palpation], [no guarding], [no appreciable o rganomegaly] Ext: [no gross muscle atrophy], [no edema], [no contractures] Neuro: [ CN II-XI grossly intact], [no focal neuro deficits] Psych: [Alert], [oriented], [appropriate affect] Results CBC & Chem 7: Assessment and Plan Assessment: Atrial flutter with RVR Nonobstructive coronary disease Essential hypertension Hyperlipidemia Obstructive sleep apnea Obesity Patient started on Cardizem drip in the ER Heparin drip and also initiated [id number] score is over 4 Consult placed to cardiology Wean off Cardizem drip as tolerated Can be started on metoprolol or p.o. Cardizem once heart rate is under 100 bpm Echocardiogram ordered Thyroid studies ordered Continuous cardiac telemetry Restart home medications were appropriate 05/04 Patient seen and examined at bedside Maintains A-fib however his heart rates come down under 100 bpm Discussed with cardiology at bedside, possible JOSE cardioversion on Thursday Otherwise patient is stable at this time Continue heparin drip Discontinue Cardizem IV drip Discontinue Plavix Patient started on low-dose aspirin Metoprolol titrate 50 mg twice daily 05/06 Patient seen and examined at bedside Remains in a flutter Plan is for JOSE cardioversion today at 9:30 AM Patient had some questions regarding need for cardiac catheterization, no indication at this time, explained to him the differences Monitor over the next 24 hours after cardioversion Continue remaining treatment per cardiology Keep n.p.o. until procedure, could have a cardiac diet afterwards Objective - Vital Signs Vital signs: Vital Signs Temp 98.1 F 05/06/24 04:00 Pulse 61 05/06/24 10:40 Resp 16 05/06/24 10:40 BP 101/68 05/06/24 10:40 Pulse Ox 94 L 05/06/24 10:40 FiO2 Intake & Output 05/05/24 05/06/24 05/06/24 18:59 06:59 18:59 Intake Total 658.565 744.449 0 Balance 658.565 744.449 0 Weight 136.6 kg Intake: IV 40 20 0 Invasive Line 1 20 Invasive Line 2 20 20 Intake, IV Titration 264.565 244.449 Amount Amiodarone 450 mg In 244.449 Dextrose 5% in Water 250 ml @ 0.5 MG/MIN 16.667 mls/hr IV .Q15H [facility] Rx#: [id number] Heparin Sod,Pork in 0.45% 264.565 NaCl 25,000 unit In 0.45 % NaCl 1 250ml.bag @ 7.35 UNITS/KG/HR 10.002 mls/ hr IV .Q24H [facility] Rx#: [id number] Oral 354 480 Other: Voiding Method Toilet # Voids 2 4 - Labs CBC & Chem 7: 05/04/24 06:41 05/03/24 10:13
[2024-05-06] MEDS: SODIUM CHLORIDE 0.9% 1,000 ML IV SCH (12:44)
[2024-05-06] MEDS: LACTATED RINGERS 1,000 ML IV SCH (12:44)
[2024-05-06] MEDS: AMIODARONE 200 MG TAB PO STA (13:36)
[2024-05-06] MEDS: AMIODARONE 200 MG TAB PO SCH (20:22)
[2024-05-07 08:00] LABS: African American GFR (CKD) >90 (>60 ml/min/1.73 sqM); Anion Gap 7 mmol/L; Blood Urea Nitrogen 21 mg/dL (9-20); Calcium 9.1 mg/dL (8.4-10.2); Carbon Dioxide 24 mmol/L (22-30); Chloride 105 mmol/L (98-107); Glucose 105 mg/dL (74-99); Non-African American GFR(CKD) >90 (>60 ml/min/1.73 sqM); Potassium 4.3 mmol/L (3.5-5.1); Sodium 136 mmol/L (137-145)
[2024-05-07] MEDS: CALCIUM CARBONATE 500 MG CHEWABLE PO PRN (08:40)
[2024-05-07] MEDS: DAPAGLIFLOZIN PROPANEDIOL 10 MG TABLET PO SCH (08:40)
--- NOTE | 2024-05-07 13:10 | P.PN ---
Subjective HISTORY OF PRESENT ILLNESS: This is a 64-year-old male with a past medical history significant for coronary artery disease, hypertension, hyperlipidemia, diabetes, and obesity. Patient follows in the office with Dr. Fried. We have been asked to see the patient in consultation for a flutter with RVR. Patient examined at the bedside. Patient states he has been having episodes of shortness of breath and palpitations. He was seen at his PCP office yesterday where an EKG was completed revealing atrial flutter and the patient was directed to come to the emergency room. The patient was found to be in a flutter with RVR. He was started on IV Cardizem. This morning, the patient remains in atrial flutter with controlled ventricular rate. Echocardiogram revealed new cardiomyopathy with EF 35 to 40% with global hypokinesis. DIAGNOSTICS: - EKG reveals atrial flutter with RVR - Chest xray negative for acute process - Laboratory data: WBC 5.9. Hemoglobin 13.8. Platelet count 211. Sodium 139. Potassium 4.3. BUN 18. Creatinine 0.89. Magnesium 2.1. Troponin negative x 1. proBNP 1230. TSH 2.040. - Current home cardiac medications include aspirin 81 mg daily, Plavix 75 mg daily, Lipitor 40 mg at night, Imdur 30 mg daily, labetalol 100 mg twice a day - Echocardiogram obtained this admission reveals ejection fraction 35 to 40%, g lobal hypokinesis, mild to moderate MR, mild AI, mild TR -Previous echocardiogram in August 2022 revealed normal EF with mild MR - Cardiac catheterization history: August 2022 revealing intermediate disease of the LAD. FFR was nonischemic. 05/05/2024 Patient examined this morning at the bedside. Patient currently denies chest pain or pressure. He denies shortness of breath at rest. He remains in atrial flutter with heart rate around 120. He remains on IV amiodarone and IV heparin. 05/07/2024 Patient is status post JOSE and cardioversion yesterday. Patient converted to sinus mechanism with 150 J shock. A few hours later, the patient went into atrial fibrillation with RVR. Patient remains in atrial fibrillation at the time of examination with a heart rate in the 90s. Patient's blood pressures are elevated with a systolic in the 150s and a diastolic around 110. PHYSICAL EXAM: VITAL SIGNS: Reviewed. GENERAL: Well-developed in no acute distress. HEENT: Head is normocephalic. Pupils are equal, round. Sclerae anicteric. Mucous membranes of the mouth are moist. Neck supple. No JVD or thyromegaly LUNGS: Respirations even and unlabored. Lungs essentially clear to auscultation bilaterally. HEART: Irregular rate and rhythm. S1 and S2 heard. ABDOMEN: Soft. Nondistended. Nontender. EXTREMITIES: Normal range of motion. No clubbing or cyanosis. Peripheral pulses intact. No lower extremity edema NEUROLOGIC: Awake and alert. Oriented x 3. ASSESSMENT: New onset typical atrial flutter with RVR, status post JOSE and cardioversion New onset atrial fibrillation with RVR Coronary artery disease with intermediate disease of the LAD, FFR nonischemic New onset cardiomyopathy, 35 to 40% with global hypokinesis, likely tachycardia induced, previous EF normal in 2022 Hypertension Hyperlipidemia Diabetes Obesity: BMI 38.7 PLAN: Continue oral anticoagulation with Eliquis Continue oral amiodarone 200 mg twice a day Increase metoprolol to tartrate to 75 mg twice daily. Given additional dose of 25 mg now Patient started on valsartan per primary medicine for optimal blood pressure control. Increase dosage to 40 mg twice a day. If patient's heart rates and blood pressures are controlled, likely discharge home tomorrow Recommend outpatient EP evaluation with Dr. Spence for ablation Further recommendations pending patient course Nurse practitioner note has been reviewed by physician. Signing provider agrees with the documented findings, assessment, and plan of care documented by DIRECTOR OF RETAIL MARKETING as a scribe. Objective - Vital Signs Vital signs: Vital Signs Temp 98.4 F 05/07/24 08:30 Pulse 95 05/07/24 11:48 Resp 16 05/07/24 11:48 BP 151/105 05/07/24 11:48 Pulse Ox 97 05/07/24 11:48 FiO2 Intake & Output 05/06/24 05/07/24 05/07/24 18:59 06:59 18:59 Intake Total 364 110 Output Total 400 Balance 364 -400 110 Weight 137.4 kg Intake: IV 10 Invasive Line 2 10 Oral 354 110 Output: Urine 400 Other: Voiding Method Toilet Toilet # Voids 2 3 1 # Bowel Movements 1 - Labs CBC & Chem 7: 05/04/24 06:41 05/07/24 07:21 Labs: Abnormal Lab Results - Last 24 Hours (Table) 05/07/24 Range/Units 07:21 Sodium 136 L (137-145) mmol/L BUN 21 H (9-20) mg/dL Glucose 105 H (74-99) mg/dL
[2024-05-07] MEDS: METOPROLOL TARTRATE 25 MG TAB PO STA (13:35)
[2024-05-07] MEDS: VALSARTAN 40 MG TAB PO SCH ×2 (13:35→15:53)
--- NOTE | 2024-05-07 17:25 | P.PN ---
Subjective Progress Note Date: 05/07/24 (delayed charting seen at 1030) Patient is a 64-year-old male with history of hypertension, dyslipidemia, GERD, and CAD who presented to the hospital with palpitations and shortness of breath. Ultimately found to have a flutter with RVR. Started on heparin drip and Cardizem drip. Underwent cardioversion on 05/06 and [facility] with RVR approximately 1 hour later. Patient seen and examined at bedside. Continues to have palpitations with walking. 1 episode of dizziness Vital signs reviewed General: Nontoxic, no distress, appears at stated age Cardiovascular: S1S2 irreg, no murmur Lungs: CTA bilateral, no rhonchi, no rales, no accessory muscle use Abdominal: Soft, nontender to palpation, no guarding Ext: No gross muscle atrophy, no edema b/l lower extremities, no contractures Neuro: CN II-XI grossly intact, no focal neuro deficits Psych: Alert, oriented, appropriate affect Assessment/Plan: Atrial flutter with rapid ventricular response A-fib with RVR History of CAD Cardiomyopathy with EF 35 to 40% and global hypokinesis. Likely tachycardia induced HTN HLD -Amiodarone 200 mg twice daily, Eliquis 5 mg twice daily -Cardiology note reviewed. Metoprolol increased to 75 mg twice daily. Valsartan increased to 40 twice daily by cardio -Farxiga 10 mg daily -Lipitor 40 mg daily Imaging: None new Data Review: BMP removed and sodium 136, BUN 21 DVT prophylaxis: Eliquis Anticipated discharge date: Anticipate home in a.m. if rate controlled This dictation was prepared using [employer] voice recognition software. Though every attempt is made to correct errors during dictation some may still exist. Objective - Vital Signs Vital signs: Vital Signs Temp 98.4 F 05/07/24 08:30 Pulse 95 05/07/24 14:40 Resp 16 05/07/24 14:40 BP 151/105 05/07/24 11:48 Pulse Ox 97 05/07/24 11:48 FiO2 Intake & Output 05/06/24 05/07/24 05/07/24 18:59 06:59 18:59 Intake Total 364 230 Output Total 400 Balance 364 -400 230 Weight 137.4 kg Intake: IV 10 Invasive Line 2 10 Oral 354 230 Output: Urine 400 Other: Voiding Method Toilet Toilet Toilet # Voids 2 3 1 # Bowel Movements 1 - Labs CBC & Chem 7: 05/04/24 06:41 05/07/24 07:21 Labs: Abnormal Lab Results - Last 24 Hours (Table) 05/07/24 Range/Units 07:21 Sodium 136 L (137-145) mmol/L BUN 21 H (9-20) mg/dL Glucose 105 H (74-99) mg/dL
[2024-05-07] MEDS: METOPROLOL TARTRATE 50 MG TAB PO SCH (21:21)
[2024-05-08 08:32] LABS: African American GFR (CKD) >90 (>60 ml/min/1.73 sqM); Anion Gap 7 mmol/L; Blood Urea Nitrogen 19 mg/dL (9-20); Calcium 8.9 mg/dL (8.4-10.2); Carbon Dioxide 26 mmol/L (22-30); Chloride 103 mmol/L (98-107); Glucose 120 mg/dL (74-99); Magnesium 1.9 mg/dL (1.6-2.3); Non-African American GFR(CKD) >90 (>60 ml/min/1.73 sqM); Potassium 4.3 mmol/L (3.5-5.1); Sodium 136 mmol/L (137-145)
[2024-05-08 10:50] VITALS: TEMP 99
--- NOTE | 2024-05-08 11:37 | P.PN ---
Subjective HISTORY OF PRESENT ILLNESS: This is a 64-year-old male with a past medical history significant for coronary artery disease, hypertension, hyperlipidemia, diabetes, and obesity. Patient follows in the office with Dr. Fried. We have been asked to see the patient in consultation for a flutter with RVR. Patient examined at the bedside. Patient states he has been having episodes of shortness of breath and palpitations. He was seen at his PCP office yesterday where an EKG was completed revealing atrial flutter and the patient was directed to come to the emergency room. The patient was found to be in a flutter with RVR. He was started on IV Cardizem. This morning, the patient remains in atrial flutter with controlled ventricular rate. Echocardiogram revealed new cardiomyopathy with EF 35 to 40% with global hypokinesis. DIAGNOSTICS: - EKG reveals atrial flutter with RVR - Chest xray negative for acute process - Laboratory data: WBC 5.9. Hemoglobin 13.8. Platelet count 211. Sodium 139. Potassium 4.3. BUN 18. Creatinine 0.89. Magnesium 2.1. Troponin negative x 1. proBNP 1230. TSH 2.040. - Current home cardiac medications include aspirin 81 mg daily, Plavix 75 mg daily, Lipitor 40 mg at night, Imdur 30 mg daily, labetalol 100 mg twice a day - Echocardiogram obtained this admission reveals ejection fraction 35 to 40%, g lobal hypokinesis, mild to moderate MR, mild AI, mild TR -Previous echocardiogram in August 2022 revealed normal EF with mild MR - Cardiac catheterization history: August 2022 revealing intermediate disease of the LAD. FFR was nonischemic. 05/05/2024 Patient examined this morning at the bedside. Patient currently denies chest pain or pressure. He denies shortness of breath at rest. He remains in atrial flutter with heart rate around 120. He remains on IV amiodarone and IV heparin. 05/07/2024 Patient is status post JOSE and cardioversion yesterday. Patient converted to sinus mechanism with 150 J shock. A few hours later, the patient went into atrial fibrillation with RVR. Patient remains in atrial fibrillation at the time of examination with a heart rate in the 90s. Patient's blood pressures are elevated with a systolic in the 150s and a diastolic around 110. 05/08/2024 Patient examined this morning the bedside. Patient reports he has mild shortness of breath this morning. He is also reporting a stomachache. He denies chest pain or pressure. He remains in atrial fibrillation with a heart rate in the 90s. Blood pressure remains elevated with a systolic in the [id number]. PHYSICAL EXAM: VITAL SIGNS: Reviewed. GENERAL: Well-developed in no acute distress. HEENT: Head is normocephalic. Pupils are equal, round. Sclerae anicteric. Mucous membranes of the mouth are moist. Neck supple. No JVD or thyromegaly LUNGS: Respirations even and unlabored. Lungs essentially clear to auscultation bilaterally. HEART: Irregular rate and rhythm. S1 and S2 heard. ABDOMEN: Soft. Nondistended. Nontender. EXTREMITIES: Normal range of motion. No clubbing or cyanosis. Peripheral pul ses intact. No lower extremity edema NEUROLOGIC: Awake and alert. Oriented x 3. ASSESSMENT: New onset typical atrial flutter with RVR, status post JOSE and cardioversion New onset atrial fibrillation with RVR Coronary artery disease with intermediate disease of the LAD, FFR nonischemic New onset cardiomyopathy, 35 to 40% with global hypokinesis, likely tachycardia induced, previous EF normal in 2022 Hypertension Hyperlipidemia Diabetes Obesity: BMI 38.7 PLAN: Continue oral anticoagulation with Eliquis Continue oral amiodarone 200 mg twice a day for 1 week. Then decrease to 200 mg daily Continue current dose of metoprolol tartrate 75 mg twice a day Increase valsartan to 80 mg twice a day for optimal blood pressure control Increase activity as tolerated If patient remains stable this afternoon, he may be discharged home today from a cardiac standpoint Recommend outpatient EP evaluation with Dr. Spence for ablation Further recommendations pending patient course Nurse practitioner note has been reviewed by physician. Signing provider agrees with the documented findings, assessment, and plan of care documented by HEAD [employer] WAITER/WAITRESS as a scribe. Objective - Vital Signs Vital signs: Vital Signs Temp 99.0 F 05/08/24 08:20 Pulse 93 05/08/24 08:20 Resp 18 05/08/24 08:20 BP 156/82 05/08/24 08:20 Pulse Ox 97 05/08/24 08:20 FiO2 Intake & Output 05/07/24 05/08/24 05/08/24 18:59 06:59 18:59 Intake Total 350 540 110 Output Total 200 Balance 150 540 110 Weight 136.2 kg Intake: Oral 350 540 110 Output: Urine 200 Other: Voiding Method Toilet Toilet # Voids 1 1 # Bowel Movements 1 1 - Labs CBC & Chem 7: 05/04/24 06:41 05/08/24 06:44 Labs: Abnormal Lab Results - Last 24 Hours (Table) 05/08/24 Range/Units 06:44 Sodium 136 L (137-145) mmol/L Glucose 120 H (74-99) mg/dL
[2024-05-08] MEDS: VALSARTAN 40 MG TAB PO STA (11:55)
[2024-05-08 12:15] VITALS: RESP 16
[2024-05-08 14:04] VITALS: BP 150/101; PULSE 104
--- NOTE | 2024-05-08 14:04 | P.DS ---
Providers Date of admission: 05/03/24 11:18 Expected date of discharge: 05/08/24 Attending physician: Elieser Meza MD Consults: 05/03/24 11:42 Consult Physician Routine Consulting Provider: Karrie Sauceda Consult Reason/Comments: atrial flutter w/ RVR Do you want consulting provider notified?: Yes Primary care physician: Christo Keenan Hospital Course: Discharge Diagnosis: Atrial flutter with rapid ventricular response A-fib with RVR, current in rate controlled a fib on discharge History of CAD Cardiomyopathy with EF 35 to 40% and global hypokinesis. Likely tachycardia induced HTN urgency HLD Hospital Course: Patient is a 64-year-old male with history of hypertension, dyslipidemia, GERD, and CAD who presented to the hospital with palpitations and shortness of breath. Ultimately found to have a flutter with RVR. Started on heparin drip and Cardizem drip. Underwent cardioversion on 05/06 and went into A-fib with RVR approximately 1 hour later. Echocardiogram with EF 35 to 40% with moderately reduced global left ventricular systolic function. Required up titration of metoprolol to achieve adequate heart rate control. Blood pressure improved. Determined stable for discharge. Follow-up: Dr. Fried in 1 week, Dr. Spence 1 week, Dr. Keenan in 3 to 4 days. New medications include Eliquis, metoprolol, Jardiance, and Diovan. Labetalol and Imdur as well as Plavix were discontinued. Will check blood pressure twice daily and make a log to bring to his appointment with Dr. Jones. Patient seen and examined at bedside. Doing well. No chest pain or palpitations. Mild shortness of breath while walking. We discussed the indication for all of his medication changes. All questions answered. Vital signs reviewed and stable. General: Nontoxic, no distress, appears at stated age Cardiovascular: S1-S2 irregular, no murmur, positive posterior tibial pulse bilateral, Lungs: CTA bilateral, no rhonchi, no rales, no accessory muscle use Abdominal: Soft, nontender to palpation, no guarding, no appreciable organomegaly Ext: No gross muscle atrophy, no edema b/l lower extremities, no contractures Neuro: CN II-XI grossly intact, no focal neuro deficits Psych: Alert, oriented, appropriate affect A total of 32 minutes of time were spent preparing this complex discharge summary. Patient was discharged on 05/08/24. This dictation was prepared using [employer] voice recognition software. Though every attempt is made to correct errors during dictation some may still exist. Patient Condition at Discharge: Stable Plan - Discharge Summary Discharge Rx Participant: Yes New Discharge Prescriptions: New Apixaban [Eliquis] 5 mg PO BID #60 tab Empagliflozin [Jardiance] 10 mg PO DAILY #30 tablet Metoprolol Tartrate [Lopressor] 75 mg PO BID #60 tablet Valsartan [Diovan] 80 mg PO BID #60 tab Amiodarone [Cordarone] 200 mg PO BID #60 tab Continue Aspirin 81 mg PO DAILY #30 tab Nitroglycerin Sl Tabs [Nitrostat] 0.4 mg SUBLINGUAL Q5M PRN #30 tab PRN Reason: Chest Pain rOPINIRole HCL [Requip] 5 mg PO HS Omeprazole 20 mg PO DAILY FLUoxetine HCL [PROzac] 20 mg PO DAILY Atorvastatin [Lipitor] 40 mg PO HS Discontinued Labetalol [Trandate] 100 mg PO BID Isosorbide Mononitrate ER [Imdur] 30 mg PO DAILY #30 tab Clopidogrel [Plavix] 75 mg PO DAILY #30 tab Discharge Medication List Aspirin 81 mg PO DAILY #30 tab 08/09/22 [Rx] Nitroglycerin Sl Tabs [Nitrostat] 0.4 mg SUBLINGUAL Q5M PRN #30 tab 08/09/22 [Rx] Atorvastatin [Lipitor] 40 mg PO HS 05/03/24 [History] FLUoxetine HCL [PROzac] 20 mg PO DAILY 05/03/24 [History] Omeprazole 20 mg PO DAILY 05/03/24 [History] rOPINIRole HCL [Requip] 5 mg PO HS 05/03/24 [History] Amiodarone [Cordarone] 200 mg PO BID #60 tab 05/08/24 [Rx] Apixaban [Eliquis] 5 mg PO BID #60 tab 05/08/24 [Rx] Empagliflozin [Jardiance] 10 mg PO DAILY #30 tablet 05/08/24 [Rx] Metoprolol Tartrate [Lopressor] 75 mg PO BID #60 tablet 05/08/24 [Rx] Valsartan [Diovan] 80 mg PO BID #60 tab 05/08/24 [Rx] Follow up Appointment(s)/Referral(s): Kel Spence MD [STAFF PHYSICIAN] - 1 Week Amadou Fried MD [STAFF PHYSICIAN] - 1 Week Christo Keenan MD [Primary Care Provider] - 1-2 days Patient Instructions/Handouts: A-fib (Atrial Fibrillation) (DC) Activity/Diet/Wound Care/Special Instructions: Activity: As tolerated Diet: Heart Healthy, 2 gram sodium Special Instructions: Take blood pressure twice daily and then make a log bring it to your appointment with Dr. Fried. Discharge Disposition: HOME SELF-CARE
[2024-05-08] MEDS ORDERED: VALSARTAN 40 MG TAB PO SCH (21:00)
== END 2024-05-08 15:16 | disposition home or self-care (01) | DRG 310 ==
LOC: EC 09:39 → 3SCARD 11:18
PROVIDERS: ADMIT Internal Medicine; ATTEND Internal Medicine
PROC: 3E033RZ Introduction of Antiarrhythmic into Peripheral Vein, Percutaneous Approach (ICD-10-PCS; 2024-05-03)
PROC: B24BZZ4 Ultrasonography of Heart with Aorta, Transesophageal (ICD-10-PCS; 2024-05-06)
PROC: 5A2204Z Restoration of Cardiac Rhythm, Single (ICD-10-PCS; principal; 2024-05-06 07:30)
DX: I48.3 Typical atrial flutter (principal); I42.9 Cardiomyopathy, unspecified; I25.10 Atherosclerotic heart disease of native coronary artery without angina pectoris; I48.91 Unspecified atrial fibrillation; I16.0 Hypertensive urgency; E78.5 Hyperlipidemia, unspecified; K21.9 Gastro-esophageal reflux disease without esophagitis; I10 Essential (primary) hypertension; E11.9 Type 2 diabetes mellitus without complications; E66.9 Obesity, unspecified; G47.33 Obstructive sleep apnea (adult) (pediatric); Z68.38 Body mass index [BMI] 38.0-38.9, adult; Z79.82 Long term (current) use of aspirin; Z79.899 Other long term (current) drug therapy
CPT/HCPCS: 36415; 71045; 71046; 80048; 80053; 83735; 83880; 84443; 84484; 85025; 85610; 85730; 92960; 93005; 93306; 93312; 93320; 93325; 96365; 96366; 96368; 99285

== ENCOUNTER 2024-05-27 07:21 | Day surgery (SDC) | payer MEDICARE ==
[2024-05-26 09:30] VITALS: BMI 37.8
[2024-05-27] MEDS ORDERED: NITROGLYCERIN SL TABS 0.4 MG TAB SUBLINGUAL PRN (07:24)
[2024-05-27] MEDS ORDERED: ALPRAZolam 0.5 MG TAB PO PRN (07:24)
[2024-05-27] MEDS ORDERED: ALPRAZolam 0.25 MG TAB PO PRN (07:24)
[2024-05-27] MEDS: ASPIRIN 325 MG TAB PO STA (07:34)
[2024-05-27] MEDS: ATORVASTATIN 80 MG TAB PO STA (07:34)
[2024-05-27] MEDS: SODIUM CHLORIDE 0.9% 1,000 ML in EMPTY BAG 1 BAG IV SCH (07:35)
[2024-05-27 07:54] VITALS: RESP 16; TEMP 98
[2024-05-27] MEDS: IV FLUID CONTINUATION 1,000 ML IV ONE (07:56)
[2024-05-27 08:03] LABS: Glucose,Whole Blood 98 mg/dL (70-110)
[2024-05-27] MEDS: MIDAZOLAM 2 MG/2 ML VIAL IVP ONE (09:49)
[2024-05-27] MEDS: LIDOCAINE 1% INJ 10MG/ML (20 ML MDV) SQ ONE (09:51)
[2024-05-27] MEDS: HEPARIN SODIUM,PORCINE 10,000 UNIT in SODIUM CHLORIDE 0.9% 1,000 ML IRRIGATION PRN (09:52)
[2024-05-27] MEDS: HEPARIN SODIUM,PORCINE (1 ML) 2,500 UNIT in SODIUM CHLORIDE 0.9% 250 ML IRRIGATION PRN (09:53)
[2024-05-27] MEDS: VERAPAMIL SYRINGE (5 MG/10 ML) INTRAARTER ONE (09:53)
[2024-05-27] MEDS: HEPARIN SODIUM 1,000 UN/ML (10ML VL) IV ONE (09:56)
[2024-05-27] MEDS: IOPAMIDOL-370 100ML BTL INJ ONE (10:12)
[2024-05-27] MEDS ORDERED: RX INFO: IV CONTRAST WAS GIVEN 1 EACH MISC MISCELLANE PRN (10:16)
--- NOTE | 2024-05-27 10:20 | P.PCN ---
Date of Procedure: 05/27/24 Operative Findings: CARDIAC CATHETERIZATION PERFORMING PHYSICIAN: Amadou Fried MD, RPVI PROCEDURE PERFORMED: 1. Selective right and left coronary angiogram and left heart catheterization 2. IFR of the LAD 3. Ultrasound-guided access of the right radial artery INDICATION: Symptomatic 64-year-old gentleman with known CAD and cardiomyopathy COMPLICATION: None APPROACH: Right radial artery LEVEL OF SEDATION: Moderate with a sedation length of 20 minutes PROCEDURE DESCRIPTION: After obtaining an informed consent, the patient was brought to cardiac laboratory manager. Local anesthesia was performed using lidocaine subcutaneously. The right radial artery was cannulated using Seldinger technique, the guidewire passed easily, following that we advanced a 5-Slovenian sheath dilator assembly, the wire and dilator were removed and sheath was flushed. Following that, 2 mg of verapamil along with 5000 unit heparin were given. Selective right and left coronary angiogram using a 6-Slovenian JR4 and JL 3.5 catheters. Following that we did left heart catheterization using 6-Slovenian pigtail catheter. After that I decided to do an IFR of the LAD. After zeroing the Doppler wire and equalizing between the Dobler wire and guiding catheter which was JL 3.5 guiding catheter the left main was engaged and the LAD was wired. I did IFR of the LAD and that came in to be at 0.90. The procedure was completed there was no complication. SELECTIVE CORONARY ANGIOGRAM: The right coronary artery: Medium caliber vessel nondominant vessel with intermediate lesion involving the proximal portion Left main: Is angiographically normal The left circumflex: Large-caliber vessel and a dominant vessel with mild disease only. No evidence of high-grade stenosis was identified The left anterior descending artery: The mid LAD has intermediate lesion appears to be in the range of 50% was identified on the AMBRIZ caudal view and documented to be nonflow limiting by Doppler wire HEMODYNAMICS: The LVEDP was 20 mmHg with no significant gradient across aortic valve CONCLUSION: 1. Intermediate disease involving the mid LAD documented to be nonflow limiting by Doppler wire 2. Elevated left-sided filling pressure POSTPROCEDURE MANAGEMENT: Medical treatment
[2024-05-27] MEDS ORDERED: SODIUM CHLORIDE 0.9% 1,000 ML IV SCH (10:30)
[2024-05-27 13:57] VITALS: BP 147/78; PULSE 56
== END 2024-05-27 13:53 | disposition home or self-care (01) ==
LOC: CATHCVL 07:21
PROVIDERS: ATTEND Internal Medicine Interventional Cardiology
DX: I25.10 Atherosclerotic heart disease of native coronary artery without angina pectoris (principal); I42.9 Cardiomyopathy, unspecified; I48.0 Paroxysmal atrial fibrillation; I10 Essential (primary) hypertension; E78.5 Hyperlipidemia, unspecified; E66.01 Morbid (severe) obesity due to excess calories; G47.30 Sleep apnea, unspecified; E11.9 Type 2 diabetes mellitus without complications; Z79.01 Long term (current) use of anticoagulants; Z79.899 Other long term (current) drug therapy; Z79.51 Long term (current) use of inhaled steroids
CPT/HCPCS: 93458; 93799; 99152; C1769 ×2; C1894; J2250; J1644 ×3; J2003; Q9967

== ENCOUNTER → 2024-07-01 | Outpatient (CLI) | payer MEDICARE ==
[2024-07-01 20:59] LABS: Prostate Specific Antigen 0.03 ng/mL (0.000-4.500); Testosterone 48.1 ng/dL (86.98-780.10)
== END | disposition home or self-care (01) ==
LOC: LABWHC1 14:26
PROVIDERS: ATTEND Urology
DX: C61 Malignant neoplasm of prostate (principal)
CPT/HCPCS: 36415; 84153; 84403

== ENCOUNTER → 2024-07-01 | Outpatient (CLI) | payer MEDICARE ==
[2024-07-01 20:25] LABS: HCT 43.1 % (39.6-50.0); HGB 13.6 g/dL (13.0-17.0); MCH 30.3 pg (27.0-32.0); MCHC 31.6 g/dL (32.0-37.0); Mean Platelet Volume 11.1 FL (9.5-12.2); NRBC Per 100 WBC 0 X 10*3/uL (0.00-0.01); Platelet Count 234 X 10*3/uL (140-440); RBC 4.49 X 10*6/uL (4.40-5.60); RDW 14.9 % (11.5-14.5); WBC 6.39 X 10*3/uL (4.50-10.00)
[2024-07-01 20:45] LABS: Blood Urea Nitrogen 21.4 mg/dL (9.0-27.0); Carbon Dioxide 26.2 mmol/L (21.6-31.8); Chloride 106 mmol/L (96-109); Potassium 4.6 mmol/L (3.5-5.5); Sodium 142 mmol/L (135-145)
== END | disposition home or self-care (01) ==
LOC: LABPAT 14:24
PROVIDERS: ATTEND Internal Medicine Clinical Cardiac Electrophysiology
DX: I48.11 Longstanding persistent atrial fibrillation (principal)
CPT/HCPCS: 80051; 82565; 84520; 85027

== ENCOUNTER 2024-07-07 09:09 | Day surgery (SDC) | payer MEDICARE ==
[2024-07-05 09:46] VITALS: BMI 39.1
[2024-07-07] MEDS: SODIUM CHLORIDE 0.9% 1,000 ML IV SCH (09:23)
[2024-07-07] MEDS: IV FLUID CONTINUATION 1,000 ML IV ONE (09:24)
[2024-07-07 09:37] LABS: Glucose,Whole Blood 93 mg/dL (70-110)
[2024-07-07 10:12] LABS: African American GFR (CKD) >90 (>60 ml/min/1.73 sqM); Albumin 4.6 g/dL (3.5-5.0); Alkaline Phosphatase 72 U/L (38-126); Anion Gap 8 mmol/L; Blood Urea Nitrogen 22 mg/dL (9-20); Calcium 9.5 mg/dL (8.4-10.2); Carbon Dioxide 25 mmol/L (22-30); Chloride 104 mmol/L (98-107); Glucose 94 mg/dL (74-99); Non-African American GFR(CKD) >90 (>60 ml/min/1.73 sqM); Sodium 137 mmol/L (137-145); Total Bilirubin 1.2 mg/dL (0.2-1.3)
[2024-07-07 10:21] LABS: ALT 27 U/L (4-49); AST 33 U/L (17-59); Potassium 4.8 mmol/L (3.5-5.1)
[2024-07-07] MEDS ORDERED: PROPOFOL 10 MG/ML 20 ML VIAL IV ONE (10:39)
[2024-07-07] MEDS ORDERED: PHENYLEPHRINE-0.9% NACL SYG 1,000 MCG/10 ML SYRINGE ONE (10:39)
[2024-07-07] MEDS ORDERED: SUCCINYLCHOLINE CHLORIDE 200 MG/10 ML VIAL IV ONE (10:39)
[2024-07-07] MEDS ORDERED: fentaNYL (PF) 50 MCG/ML 2 ML AMP ONE (10:39)
[2024-07-07] MEDS ORDERED: METOPROLOL TARTRATE 5 MG/5 ML VIAL IVP ONE (10:39)
[2024-07-07] MEDS ORDERED: PHENYLEPHRINE 10 MG/ML VIAL ONE (10:39)
[2024-07-07] MEDS ORDERED: MIDAZOLAM 2 MG/2 ML VIAL ONE (10:39)
[2024-07-07] MEDS ORDERED: HEPARIN SODIUM,PORCINE 10,000 UNIT/ML 1 ML VIAL ONE (10:39)
[2024-07-07] MEDS ORDERED: LIDOCAINE 1% INJ 10MG/ML (20 ML MDV) ONE (10:39)
[2024-07-07] MEDS ORDERED: ISOPROTERENOL 250 MCG/1.25 ML SYR IV ONE (10:39)
[2024-07-07] MEDS: HEPARIN SODIUM,PORCINE 10,000 UNIT in SODIUM CHLORIDE 0.9% 1,000 ML IRRIGATION ONE (10:54)
[2024-07-07] MEDS: HEPARIN SOD,PORK IN 0.45% NACL 25,000 UNIT in 0.45% NACL 1 250ML.BAG IV ONE (10:55)
[2024-07-07] MEDS: HEPARIN SODIUM,PORCINE (1 ML) 2,500 UNIT in SODIUM CHLORIDE 0.9% 250 ML IRRIGATION ONE (10:55)
[2024-07-07] MEDS: LIDOCAINE 1% INJ 10MG/ML (20 ML MDV) SQ ONE (11:18)
[2024-07-07] MEDS: IOPAMIDOL-250 100ML BTL IVP ONE (13:30)
--- NOTE | 2024-07-07 13:30 | P.HPCAR ---
History of Present Illness This is Dr. Spence dictating an H/P on this patient The patient was interviewed and examined IMPRESSION / ASSESSMENT: Persistent atrial fibrillation with associated cardiomyopathy Complains of palpitation shortness of breath tiredness and fatigue Underwent electrical cardioversion Failed amiodarone Moderate nonobstructive CAD by cardiac catheterization Severe left atrial enlargement Mild RV enlargement and global hypokinesis of the LV with elevated filling pressures Normal TSH PLAN: A-fib ablation today. Continue anticoagulation. Heparin dose calculated. Avoid dofetilide Patient was in sinus rhythm today after stopping amiodarone HPI Patient continues to complain of palpitations. A few weeks back he had palpitations that lasted for several hours and he was symptomatic with this No chest pain no loss of consciousness No fever chills cough expectoration ROS: No fever chills or rigors, no cough, phlegm or expectoration, no nausea, vomiting or diarrhea, no hematuria, dysuria, no musculoskeletal complaints, no strokes or seizures, no skin lesions. EXAMINATION: Blood pressure 138/94 mmHg pulse rate in the 70s afebrile No JVD No lower extremity edema Soft abdomen nontender Clear lungs no rhonchi no crackles REVIEW OF LABS, ECG & MEDICAL DATA Sodium 137 potassium 4.8 BUN 22 creatinine 0.7 AST and ALT normal TSH was 2.3, normal Physical Exam Vitals: Vital Signs Temp Pulse Resp BP BP Pulse Ox 07/07/24 09:29 97.8 F 74 16 138/94 138/85 93 L Intake and Output 07/06/24 07/07/24 07/07/24 22:59 06:59 14:59 Intake Total 0 Balance 0 Intake: IV 0 Other: Weight 137.8 kg Past Medical History Past Medical History: Atrial Fibrillation, Cancer, Osteoarthritis (OA), Sleep Apnea/CPAP/BIPAP Additional Past Medical History / Comment(s): See Dr Spence's H&P. SLEEP APNEA- USES CPAP. Hx prostate cancer October 2020, had prostatectomy, radiation and taking Lupron Hormone Shots. History of Any Multi-Drug Resistant Organisms: None Reported Past Surgical History: Heart Catheterization, Orthopedic Surgery, Prostate Surgery Additional Past Surgical History / Comment(s): BILATERAL ROTATOR CUFF REPAIR, LEFT SHOULDER SURGERY 1976, COLONOSCOPY. Past Anesthesia/Blood Transfusion Reactions: No Reported Reaction Smoking Status: Never smoker - Past Family History Mother Family Medical History: No Reported History Physical Examination Vital Signs Temp Pulse Resp BP BP Pulse Ox 07/07/24 09:29 97.8 F 74 16 138/94 138/85 93 L Intake and Output 07/06/24 07/07/24 07/07/24 22:59 06:59 14:59 Intake Total 0 Balance 0 Intake: IV 0 Other: Weight 137.8 kg Results 07/07/24 09:25 Cardiac Enzymes 07/07/24 Range/Units 09:25 AST 33 (17-59) U/L Comprehensive Metabolic Panel 07/07/24 Range/Units 09:25 Sodium 137 (137-145) mmol/L Potassium 4.8 (3.5-5.1) mmol/L Chloride 104 (98-107) mmol/L Carbon Dioxide 25 (22-30) mmol/L BUN 22 H (9-20) mg/dL Creatinine 0.72 (0.66-1.25) mg/dL Glucose 94 (74-99) mg/dL Calcium 9.5 (8.4-10.2) mg/dL AST 33 (17-59) U/L ALT 27 (4-49) U/L Alkaline Phosphatase 72 (38-126) U/L Total Protein 7.0 (6.3-8.2) g/dL Albumin 4.6 (3.5-5.0) g/dL Current Medications Generic Name Dose Route Start Last Admin Trade Name Freq PRN Reason Stop Dose Admin Lactated Ringer's 1,000 mls @ 20 mls/hr 07/07/24 06:11 Lactated Ringers IV 08/06/24 06:10 .Q24H [place] Sodium Chloride 1,000 mls @ 20 mls/hr 07/07/24 06:11 07/07/24 09:23 Saline 0.9% IV 08/06/24 06:10 20 mls/hr .Q24H [place] Administration Intake and Output 07/06/24 07/07/24 07/07/24 22:59 06:59 14:59 Intake Total 0 Balance 0 Intake: IV 0 Other: Weight 137.8 kg Patient Weight 07/08/24 06:59 Weight 137.8 kg 07/07/24 09:25
--- NOTE | 2024-07-07 13:47 | P.EPPROC ---
- EP Procedure Note Electrophysiology Procedure Note: PROCEDURE A. fib ablation DIAGNOSIS Atrial fibrillation, symptomatic, refractory to therapy associated with cardiomyopathy RESULT No left atrial appendage mass seen on intracardiac echo, LVH Successful A. fib ablation/pulmonary vein isolation of all veins using cryo- ablation Complete entrance block in all 4 veins confirmed No evidence for phrenic nerve injury Left atrial septal ablation Esophageal deflection NO Plan Continue beta-blockers and heart failure medications PROCEDURE DETAILS Written informed consent prior to procedure. Patient brought to the EP lab. General anesthesia given. Heparin administered. A city maintained above 300 seconds Both groins prepped and draped per protocol and venous sheaths placed. Esophagus intubated, circa catheter for temperature monitoring an endoscope for possible esophageal deflection. Phrenic nerve monitoring performed. Esophageal temperature monitoring performed. Esophageal deflection performed if circa catheter overlapping with the balloon or circa temperature less than 27.5C Intracardiac echocardiography performed. Pericardium evaluated. Left atrial appendage evaluated. Left atrium evaluated along with pulmonary veins Transseptal catheterization performed under fluoroscopic guidance and intracardiac echo guidance Cryoablation sheath exchanged, balloon catheter along with achieve catheter placed in the left atrium. Pulmonary veins isolated in the following sequence: Left superior pulmonary vein followed by left inferior pulmonary vein, followed by right inferior pulmonary vein and lastly right superior pulmonary vein. Phrenic nerve stimulation along with capture thresholds within the SVC and right superior pulmonary vein to identify the phrenic nerve proximity to the cryo- balloon. Pulmonary veins isolated and confirmed with entrance and exit block. Phrenic nerve integrity confirmed at the end of the procedure Ablation of the left atrial septum performed with cannulation of the superior branch of the right inferior or the inferior branch of the right superior vein to achieve ablation of the posterior septum of the left atrium. Ablation of electrograms confirmed Diagnostic catheters for the high right atrium, His bundle, coronary sinus placed. LA and RA pressures recorded LA pressure: Diagnostic EP study with coronary sinus pacing and recording Baseline measurements: AZ interval 153, QRS 105, QT 476, sinus cycle length 1036 AH 76 and HV 37 ms Burst stimulation from the high right atrium into the coronary sinus Extrastimulation performed High-dose Isopril used and burst stimulation performed sustained VT induced with burst stimulation up to 20 ms from the coronary sinus requiring electrical cardioversion/defibrillation Venous sheaths were removed and hemostasis assured with a closure device. Patient extubated and transferred to recovery PROCEDURES PERFORMED Diagnostic EP study CS pacing and recording Left and right transseptal catheterization Catheter the mapping of the tachycardia Intracardiac echocardiography Pulmonary vein isolation with transseptal and comprehensive EPS, [id number] Drug infusion, +[id number] Linear ablation, left atrium, +[id number]
[2024-07-07] MEDS: ACETAMINOPHEN IV (For NPO) 1,000 MG in EMPTY BAG 1 BAG IVPB ONE (17:36)
[2024-07-07] MEDS: LACTATED RINGERS 1,000 ML IV SCH (17:36)
[2024-07-07] MEDS: ATORVASTATIN 40 MG TAB PO SCH (20:03)
[2024-07-07] MEDS: VALSARTAN 80 MG TAB PO SCH (20:03)
[2024-07-07] MEDS: APIXABAN 5 MG TAB PO SCH (20:03)
[2024-07-07] MEDS: METOPROLOL TARTRATE 25 MG TAB PO SCH (20:03)
[2024-07-08] MEDS: ACETAMINOPHEN TAB 325 MG TAB PO PRN (04:22)
[2024-07-08] MEDS: ASPIRIN 81 MG PO SCH (08:39)
[2024-07-08] MEDS: PANTOPRAZOLE 40 MG TABLET PO SCH (08:39)
[2024-07-08] MEDS: DAPAGLIFLOZIN PROPANEDIOL 5 MG TABLET PO SCH (08:40)
[2024-07-08] MEDS: FLUoxetine HCL 20 MG CAP PO SCH (08:40)
[2024-07-08 09:59] VITALS: BP 142/81; PULSE 60; RESP 16; TEMP 97.7
--- NOTE | 2024-07-12 15:24 | P.DS ---
Providers Attending physician: Kel Spence Primary care physician: [facility] Course: Patient is doing well. No chest discomfort dizziness lightheadedness or palpitations Mild sore throat On examination Afebrile, pulse rate 60 beats minute, blood pressure 109/66 mmHg Heart sounds S1-S2 normal Breath sounds are clear Groins of healed well impression A-fib ablation with PVI and left atrial septal ablation Plan Continue anticoagulation, continue beta-blockers and heart failure medications Discharge today Follow-up in the office in 1 week Plan - Discharge Summary Discharge Rx Participant: No New Discharge Prescriptions: Continue Aspirin 81 mg PO DAILY #30 tab Nitroglycerin Sl Tabs [Nitrostat] 0.4 mg SUBLINGUAL Q5M PRN #30 tab PRN Reason: Chest Pain rOPINIRole HCL [Requip] 5 mg PO HS Omeprazole 20 mg PO DAILY FLUoxetine HCL [PROzac] 20 mg PO DAILY Empagliflozin [Jardiance] 10 mg PO DAILY #30 tablet Metoprolol Tartrate [Lopressor] 75 mg PO BID #60 tablet Apixaban [Eliquis] 5 mg PO BID Atorvastatin [Lipitor] 40 mg PO HS Valsartan [Diovan] 80 mg PO BID #60 tab Discharge Medication List Aspirin 81 mg PO DAILY #30 tab 08/09/22 [Rx] Nitroglycerin Sl Tabs [Nitrostat] 0.4 mg SUBLINGUAL Q5M PRN #30 tab 08/09/22 [Rx] Atorvastatin [Lipitor] 40 mg PO HS 05/03/24 [History] FLUoxetine HCL [PROzac] 20 mg PO DAILY 05/03/24 [History] Omeprazole 20 mg PO DAILY 05/03/24 [History] rOPINIRole HCL [Requip] 5 mg PO HS 05/03/24 [History] Empagliflozin [Jardiance] 10 mg PO DAILY #30 tablet 05/08/24 [Rx] Metoprolol Tartrate [Lopressor] 75 mg PO BID #60 tablet 05/08/24 [Rx] Valsartan [Diovan] 80 mg PO BID #60 tab 05/08/24 [Rx] Apixaban [Eliquis] 5 mg PO BID 07/05/24 [History] Follow up Appointment(s)/Referral(s): Amadou Fried MD [STAFF PHYSICIAN] - 07/13/24 5:00 pm Patient Instructions/Handouts: Cardiac Ablation (GEN) Activity/Diet/Wound Care/Special Instructions: Post EP study - Ablation instructions 1. Keep access sites dry for 2 days. 2. No heavy lifting or straining for 2 days. 3. Avoid bending the hips repeatedly for 2 days. 4. You may go up and down stairs slowly 5. If you have had an ablation for atrial fibrillation or atrial flutter and are on a blood thinner, do not stop the blood thinner even temporarily for 3 months post ablation Call if the following is noted 1. Bleeding, increasing swelling or pain at the access sites. 2. Increasing chest discomfort, especially upon taking a deep breath. 3. Increasing shortness of breath, at rest or with exertion. 4. Undue cough / phlegm 5. Difficulty or pain while swallowing. 6. Pain or change in color in the extremities. 7. Fever, chills, rigors. 8. Increasing headache or neurologic symptoms. 9. Dizziness, fainting, palpitations For patients who have undergone an A-fib ablation /atrial flutter ablation Strict instruction; do NOT stop anticoagulation (Eliquis/Xarelto/Pradaxa) for the next 2 months temporarily, for any elective, nonurgent surgery. This increases the risk of stroke, post A-fib ablation Discharge Disposition: HOME SELF-CARE
== END 2024-07-08 11:04 | disposition home or self-care (01) ==
LOC: CATHEP 09:09 → 6NMEDSUR 13:15 → CATHEP 07-08 11:04
PROVIDERS: ATTEND Internal Medicine Clinical Cardiac Electrophysiology
DX: I48.19 Other persistent atrial fibrillation (principal); I11.0 Hypertensive heart disease with heart failure; I50.9 Heart failure, unspecified; I42.9 Cardiomyopathy, unspecified; I25.10 Atherosclerotic heart disease of native coronary artery without angina pectoris; E78.5 Hyperlipidemia, unspecified; G47.30 Sleep apnea, unspecified; Z79.01 Long term (current) use of anticoagulants; Z79.84 Long term (current) use of oral hypoglycemic drugs; Z79.899 Other long term (current) drug therapy; Z85.46 Personal history of malignant neoplasm of prostate; Z82.49 Family history of ischemic heart disease and other diseases of the circulatory system
CPT/HCPCS: 93623; 93656; 93657; 86900; 86901; 80053; 84443; 86850; C1894; C1769; C1760 ×3; C1730 ×2; C1759; C1733; C1766; J2250; J0330; J1644 ×3; J2003; J3010; J2704; Q9966; J2371 ×2

== ENCOUNTER → 2024-11-08 | Outpatient (CLI) | payer MEDICARE ==
[2024-11-08 16:49] LABS: African American GFR (CKD) >90 (>60 ml/min/1.73 sqM); Blood Urea Nitrogen 20 mg/dL (9-20); Non-African American GFR(CKD) >90 (>60 ml/min/1.73 sqM)
--- NOTE | 2024-11-12 16:45 | CT ---
EXAMINATION TYPE: CT angio chest DATE OF EXAM: 11/08/2024 5:29 PM COMPARISON: None. 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 Study is performed with intravenous contrast timed for evaluation for aortic aneurysm. This will limit additional porti ons of the evaluation. 10mm MIP images reconstructed by the technologist are reviewed on the compute r in the coronal and sagittal planes. 3-D reconstructed images performed on a separate computer by dinora taylor technologist are presented. Contrast used:100ml mL of Isovue 370 with IV Contrast, (none if empty) Oral contrast used: (none if empty) CT DLP: 1771.7 mGycm, Automated exposure control for dose reduction was used. FINDINGS: No persistent filling defects are evident to suggest an acute pulmonary embolism. No mediastinal or hilar adenopathy enlarged by CT criteria is evident. The ascending aorta diameter at the level of the main pulmonary artery is 3.8 cm. The main pulmonary artery diameter at the bifurcation is 2.9 cm. There is a three-vessel arch. Aorta aortic root is 3 .6 cm. Transverse dimension of the aortic arch is 3.2 cm. Descending thoracic aorta at the diaphragm is 2.9 cm. Lung windows are clear. No significant coronary artery calcifications. Limited CT sections were through the upper abdomen. Renal cysts are present. IMPRESSION: 1. There is some fusiform prominence of the ascending thoracic aorta with a maximum AP diameter of 3. 8 cm. Aorta tapers to its visualized course. [facility], , 11/12/2024 4:42 PM
== END | disposition home or self-care (01) ==
LOC: RADCTMAIN 16:03
PROVIDERS: ATTEND Family Medicine
DX: I71.21 Aneurysm of the ascending aorta, without rupture (principal)
CPT/HCPCS: 82565; 84520; 71275; 36415; Q9967